=== PATIENT | male | born 1940 | race Caucasian/White ===

== ENCOUNTER 2018-03-08 13:55 | Inpatient (IN) | payer MEDICARE, SELFPAY ==
[2018-03-08] VITALS (21 sets, daily range): BP systolic 112–193; BP diastolic 67–94; PULSE 69–117; RESP 15–26; TEMP 36.4–37.2; O2SAT 80–95; BMI 24.3; BMI 24.4; BMI 25.4
--- NOTE | 2018-03-08 | IMM_PTH ---
PATIENT: BONNY AGUILERA LOC: [facility] U#:[id number] AGE/SX: 77/M ROOM: [facility] RE03/08/[address]: Dr. Mushtaq Garcia MD : 1940 BED: 1 DIS: 03/12/2018 SPEC #: [id number] RECD: 03/10/18 12:42 STATUS: SOULou REQ #: [id number] ALY: 03/08/18 00:[address]: Mushtaq Garcia DEPT: IMMUNOHISTOCHEMISTRY RECD BY: Tiffanie Conroy ENTERED: 03/10/18 12:43 SP TYPE: IMMUNO OTHR DR: MD Dr. Alexis Parra MD Tissues: THORACIC FLUID Procedures: CK5-6 (initial) Tim Ret (add) CK20 (add) CK7 (add) MACRO (add) P53 (add) Vimentin (add) PHYSICIAN & INSTITUTION [place] [id number] SPECIMEN INFORMATION: Tissue Source: Thoracentesis fluid Clinical Info: Acute respiratory failure, COPD Specimen Number: [id number] CPT code: 85918, 68533 x6 METHODOLOGY: Deparaffinized sections of prefer/formalin-fixed tissue or PAP/DQ stained slides are incubated with monoclonal/polyclonal antibodies/oligonucleotide probes. Localization is made via biotin free immunoperoxidase method. Appropriate controls are performed and reacted as expected. Results on target cell population are indicated in the following table: RESULTS: ANTIBODY / CLONE RESULT CK5-6 (D5 & 1684) positive, focal CALRET (polyclonal) positive CK7 (OV-TL12/30) positive CK20 (KS20.8) negative P53 (DO-7) negative Vimentin (V9) positive Macro (HAM-56) positive These tests were developed and their performance characteristics determined by [facility]. They may not have been cleared or approved by the U.S. Food and Drug Administration. The FDA has determined that such clearance or approval is not necessary. INTERPRETATION: Thoracentesis fluid: Reactive mesothelial cells and macrophages. AM:camron 03/11/18
--- NOTE | 2018-03-08 14:09 | EKG12_ITS ---
Test Reason : SOB Blood Pressure : / mmHG Vent. Rate : 079 BPM Atrial Rate : 079 BPM P-R Int : 176 ms QRS Dur : 102 ms QT Int : 400 ms P-R-T Axes : 066 045 056 degrees QTc Int : 458 ms Sinus rhythm with Premature atrial complexes Inferior infarct , age undetermined Abnormal ECG Confirmed by SAUNDRA PAN, PAO ([id number]), online editor JAVAD NAPIER ([id number]) on 03/10/2018 3:15:27 PM Referred By: Anne Vences Confirmed By:PAO ARGUELLO MD
--- NOTE | 2018-03-08 14:13 | RAD_ITS ---
STUDY: X-RAY CHEST REASON FOR EXAM: Male, 77 years old. Shortness of breath and dyspnea. Recent diagnosis of pneumothorax. TECHNIQUE: PA and lateral views of the chest. COMPARISON: None. FINDINGS: There is evidence of a moderate-sized right pleural effusion with underlying infiltration and/or atelectasis. This is superimposed on increased markings in the right upper and right middle lobes suggestive of possible scarring. There is blunting of the posterior left costophrenic angle. Calcified pleural plaques on the right side. Normal size heart. Normal mediastinum and jayla. Normal visualized pulmonary arteries. There is atherosclerotic tortuosity of the aortic arch and descending thoracic aorta. There are diffuse degenerative changes of the visualized thoracic spine. There is degenerative osteoarthritis of the bilateral shoulders. There is no demonstrated abnormality of the visualized soft tissue structures of the upper abdomen. RAD/Chest PA and Lateral IMPRESSION: Right pleural effusion with underlying infiltration and/or atelectasis superimposed on chronic scarring. Calcified right pleural plaques. Electronically Signed: Jens Gomez MD at 15:13 EST Tel [phone], Service support ,
--- NOTE | 2018-03-08 15:09 | ED.VISSUMM ---
- ER Visit Summary Date of Service: 03/08/18 Chief Complaint: Shortness of breath History of Present Illness: The patient is a 77 M with shortness of breath for the past 3 weeks or so he has emphysema, and now he was seen again today and was seen by at the [facility], sent to the emergency department apparently he was hypoxic on his home oxygen. Patient does not endorse any worsening of his symptoms, just similar symptoms for the past 3 weeks. He is denying any steroid use. He uses his home nebulizer every 4 hours which helps. He has no fever or chills. He has a cough but minimal sputum production. No chest pain no leg pain or calf pain or edema. Physical Examination: Patient is in the room on his home oxygen he appears in some distress but is speaking in full sentences. Moist mucous membranes, no obvious facial deformity No C-spine tenderness supple neck. Regular rate and rhythm without any obvious murmurs He has diminished breath sounds bilaterally and slight end expiratory wheezing. Abdomen soft and nontender no guarding or rebound Moves all extremities without any difficulty or pain. Skin does not show any obvious rashes or lesions, no trauma. Alert oriented ?3 with no gross focal deficit Emergency Department Course and Treatment: Patient received steroids and nebulizers. He continued to be hypoxic soon as he talks. He has a pleural effusion which will be drained tomorrow. At this time I believe patient needs admission. Sputum has not changed in color or consistency or frequency he has no fever he has no pneumonia on x-ray I will not start antibiotics in the ED. Disposition: Admit to the hospital stable condition Impression: COPD exacerbation This note was generated with Sodbuster dictation software. It may contain incorrect words, spelling, and punctuation that were not noted in review of the chart prior to signing ED Disposition - Plan for ED Patient: Chief Complaint: Shortness of Breath Referrals: Alexis Vaz MD [Primary Care Provider] -
[2018-03-08] MEDS: Ipratropium/Albuterol Sulfate 3 ML AMPUL.NEB INHALATION ×3 (15:15→23:11)
[2018-03-08] MEDS: Albuterol 2.5 MG/3 ML VIAL.NEB. INHALATION ×2 (15:15)
[2018-03-08] MEDS: MethylPREDNISolone 125 MG/2 ML Vial IV (15:32)
[2018-03-08 15:42] LABS: Absolute Lymphocyte Count 0.84 X10^3/ul (0.83-4.51); Absolute Neutrophil Count 4.4 X10^3/uL (2.0-7.7); Basophil# 0.02 X10^3/uL; Basophil% 0.3 % (0-1); Eosinophil# 0.34 X10^3/uL; Eosinophils% 5.5 % (0-5); Hematocrit 30.8 % (40-54); Hemoglobin 9.1 g/dl (13.0-16.5); Lymphocyte # 0.84 X10^3/ul (4.0); Lymphocyte % 13.6 % (19-41); Mean Corp Hgb Conc 29.5 g/gl (32-36); Mean Corpuscular Hgb 30.2 pg (27.0-32.0); Mean Corpuscular Volume 102.3 fL (80-94); Monocyte# 0.55 X10^3/uL; Monocyte% 8.9 % (0-10); Neutrophil # 4.42 X10^3/uL (2.7-7.7); Neutrophil % 71.5 % (47-70); POSITIVE COUNT NO; POSITIVE DIFFERENTIAL NO; POSITIVE MORPHOLOGY NO; Platelet Count 228 K/mm3 (150-450); RBC Distribution Width CV 13.6 % (11.6-14.6); RBC Distribution Width SD 50.8 fl (35.1-43.9); Red Blood Count 3.01 M/mm3 (4.6-6.2); White Blood Count 6.2 K/mm3 (4.4-11.0)
[2018-03-08 15:50] LABS: Anion Gap 2 (5-15); BUN 23 mg/dL (7-18); BUN/Creat Ratio 17.4 RATIO (10-20); Calcium,Total 8.4 mg/dL (8.5-10.1); Chloride 98 mmol/L (98-107); Creatinine, Serum 1.32 mg/dL (0.70-1.30); EST Glomerular Filtration Rate 56 mL/min (>60); Est Glom Filt Rate - Afr Amer 68 mL/min (>60); Estimated Creatinine Clearance 49.93 ml/min; Glucose 132 mg/dL (74-106); Potassium 4.5 mmol/L (3.5-5.1); Sodium Level 135 mmol/L (136-145)
--- NOTE | 2018-03-08 17:56 | HP.PCM_ITS ---
Problem List (1) COPD (chronic obstructive pulmonary disease) Status: Chronic Qualifiers: COPD type: unspecified COPD Qualified Code(s): J44.9 - Chronic obstructive pulmonary disease, unspecified (2) PAF (paroxysmal atrial fibrillation) Status: Chronic (3) HTN (hypertension) Status: Chronic Qualifiers: Hypertension type: essential hypertension Qualified Code(s): I10 - Essential (primary) hypertension (4) HLD (hyperlipidemia) Status: Chronic Qualifiers: Hyperlipidemia type: unspecified Qualified Code(s): E78.5 - Hyperlipidemia, unspecified (5) Psoriatic arthritis Status: Chronic (6) Chronic respiratory failure with hypoxia Status: Chronic (7) CKD (chronic kidney disease) stage 3, GFR 30-59 ml/min Status: Chronic (8) Anemia Status: Chronic Qualifiers: Anemia type: unspecified type Qualified Code(s): D64.9 - Anemia, unspecified (9) PAD (peripheral artery disease) Status: Chronic (10) Diabetes mellitus, type II Status: Chronic Qualifiers: 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: without nursing home use Diabetes mellitus complication status: with unspecified complications Qualified Code(s): E11.8 - Type 2 diabetes mellitus with unspecified complications (11) Acute respiratory failure with hypoxia Status: Acute (12) COPD exacerbation Status: Acute History of Present Illness Date of Admission: 03/08/18 Chief Complaint: Dyspnea, hypoxic The patient is a 77 y/o M w/ PMHx: CKD stage III, PAF not anticoagulated secondary to GI bleed hx, chronic macrocytic anemia, HTN, HLD, GERD, Diabetes mellitus type II, BPH, Psoriatic Arthritis, Chronic COPD w/ Chronic Hypoxic Respiratory failure (4L NC) who presents to the [facility] ED per recommendation CC PCP secondary to ongoing progressively worsening dyspnea, wheezing, minimally productive cough and nasal congestion although chronic component as well without any fever or chills w/ serial evaluations recently for ongoing symptoms. Upon most recent evaluation on day of ED presentation at [facility] urgent care patient was noted to be hypoxic into the 60s. In the ED work-up includes afebrile, heart rate 80, BP 112/67, respiratory rate 24, 95% on 4 L nasal cannula but with any conversational attempts patient does desaturate upon evaluation into the 80s, CBC with WBC 6.2, heme globin 9.1, platelet 228 without market left shift, BMP with sodium 135, carbon dioxide 35, BUN/creatinine 23/1.32, glucose 132, troponin 0 0.026, EKG with no acute evidence of ischemia, chest x-ray with right pleural effusion moderate size with underlying atelectasis superimposed on chronic scarring, calcified right pleural plaques. In the ED patient administered albuterol, DuoNeb and Solu-Medrol. Discussed with the ED physician and given ongoing severe appearance with increased work of breathing, accessory muscle usage, conversational dyspnea with intermittent desaturations despite increased oxygenation into the mid 80s ABG to be obtained. Home medications: Lisinopril 40 mg p.o. daily Flonase 50 MCG/actuation nasal spray 2 sprays each nostril daily Felodipine ER 10 mg p.o. daily Sulfasalazine EC 500 mg p.o. daily Flomax 0.4 mg p.o. daily Folic acid 1 mg p.o. daily Albuterol Ventolin inhaler 90 MCG/actuation as needed DuoNeb 0.5 mg-3 mg/3 Mill nebulizer every 6 hours Colace 100 mg p.o. daily Mucinex 600 mg p.o. twice daily Vitamin B1 100 mg p.o. daily Atorvastatin 40 mg p.o. nightly Latanoprost 0.005% ophthalmic solution Aspirin 81 mg p.o. daily Past Medical History Past Medical History (Chronic Problems): Chronic Problems COPD (chronic obstructive pulmonary disease) (Chronic) PAF (paroxysmal atrial fibrillation) (Chronic) HTN (hypertension) (Chronic) HLD (hyperlipidemia) (Chronic) Psoriatic arthritis (Chronic) Chronic respiratory failure with hypoxia (Chronic) CKD (chronic kidney disease) stage 3, GFR 30-59 ml/min (Chronic) Anemia (Chronic) PAD (peripheral artery disease) (Chronic) Diabetes mellitus, type II (Chronic) Allergies No Known Allergies Allergy (Verified 03/08/18 14:02) Surgical History: - - Right surgery with corneal transplant, umbilical hernia repair. Psychiatric History: No pertinent psych hx Lives: Alone Smoking Status: Former smoker - Quit in July 2017 with 1 pack/day history prior to this times 50 years. Tobacco Use: Non-smoker Alcohol: Occasional Drugs: None - *Family History Maternal History Items: Cancer Paternal History Items: Cancer Review of Systems Constitutional: Reports: Malaise, Weakness, Fatigue. Denies: Chills, Fever, Weight Change HEENT: Denies: Head Aches, Sinus Congestion, Sinus Drainage Cardiovascular: Denies: Chest Pain, Palpitations Respiratory: Reports: Cough, Shortness of Breath, Shortness of breath at rest, Shortness of breath upon exertion, Wheezing. Denies: Sputum production Gastrointestinal: Denies: Abdominal Pain, Nausea, Vomiting Genitourinary: Denies: Dysuria Musculoskeletal: Reports: Back Pain, Joint Pain. Denies: Joint Tenderness Skin: Reports: Skin Changes. Denies: Rash, Wounds Neurological: Denies: Numbness, Tingling, Focal weakness Psychiatric: Denies: Anxiety, Depression, Homicidal Ideations, Suicidal Ideations Hematologic/ Lymphatic: Reports: Anemia. Denies: Easy Bruising, Easy Bleeding VTE Information - Inpt Only VTE Present on Admission: No VTE Mechan Device Prophylaxis: SCD's VTE Pharm Prophylaxis ordered?: Yes Patient Problems: Active and Suspected Problems Acute respiratory failure with hypoxia (Acute) COPD exacerbation (Acute) Subjective: Seated upright in the ED bed, fatigued appearance, increased work of breathing, accessory muscle usage, increased respiratory rate. Objective: Physical Examination: General: awake, alert, oriented x 3 and cooperative, seated upright in the ED bed, increased work of breathing, accessory muscle usage, increased respiratory rate. Skin: normal color, turgor, no icterus, cyanosis. HEENT: AT/NC, EOMI, PERRLA, mildly dry MM, no carotid bruits or JVD noted. Lungs: Diminished breath sounds diffusely, greater bilateral bases, right greater than left, no market rales noted, increased work of breathing, accessory muscle usage, conversational dyspnea, evident respiratory distress. Heart: Mildly tachycardic with regular rhythm; no gallop, rub audible. Abdomen: soft, NTTP, ND, normal BS, no HSM. Extremities: no cyanosis, clubbing, mild bilateral lower extremity ankle edema. Neurological: patient awake, alert, oriented x 3; cognitive function intact; pupils equally reactive to light and accomodation; cranial nerves II-XII grossly normal, moving all 4 extremities, no focal deficits, strength severely globally decreased secondary to acute presentation. Psychiatric: affect appears fatigued, no acute evidence of depressive or anxiety feelings. - Physical Exam Vital Signs Temp Pulse Resp BP Pulse Ox 97.5 F L 81 15 182/91 H 90 03/08/18 13:59 03/08/18 17:07 03/08/18 17:07 03/08/18 17:07 03/08/18 17:07 Oxygen Flow Rate (L/min) 6 Oxygen Delivery Method Nasal Cannula Weight: 170 lb Body Mass Index (BMI) 24.3 Laboratory Tests Past 24 Hrs 03/08/18 03/08/18 15:20 15:20 WBC 6.2 RBC 3.01 L Hgb 9.1 L Hct 30.8 L MCV 102.3 H MCH 30.2 MCHC 29.5 L RDW 13.6 RDW Differential 50.8 H Plt Count 228 MPV 9.0 Immature Gran % (Auto) 0.200 Neut % (Auto) 71.5 H Lymph % (Auto) 13.6 L Nicholas % (Auto) 8.9 Eos % (Auto) 5.5 H Baso % (Auto) 0.3 Absolute Neuts (auto) 4.4 Absolute Lymphs (auto) 0.84 Total Counted Not Reportable Sodium 135 L Potassium 4.5 Chloride 98 Carbon Dioxide 35.0 H Anion Gap 2 L BUN 23 H Creatinine 1.32 H Estim Creat Clear Calc 49.93 Est GFR (MDRD) Af Amer 68 Est GFR (MDRD) Non-Af 56 L BUN/Creatinine Ratio 17.4 Glucose 132 H Calcium 8.4 L Troponin I 0.026 Assessment/Plan All Active Problems Acute respiratory failure with hypoxia (Acute) COPD exacerbation (Acute) The patient is a 77 y/o M w/ PMHx: CKD stage III, PAF not anticoagulated secondary to GI bleed hx, chronic macrocytic anemia, HTN, HLD, GERD, Diabetes mellitus type II, BPH, Psoriatic Arthritis, Chronic COPD w/ Chronic Hypoxic Respiratory failure (4L NC) who presents to the [facility] ED per recommendation CC PCP secondary to ongoing progressively worsening dyspnea, wheezing, minimally productive cough and nasal congestion although chronic component as well without any fever or chills w/ serial evaluations recently for ongoing symptoms. (1) Acute on chronic COPD exacerbation w/ Acute on Chronic Hypoxic Respiratory Failure and Suspected Hypercapnia and recurrent right-sided pleural effusion: CXR w/ chronic changes, CBC on admission w/ no market W BC elevation or left shift. In the ED patient concerning appearance with evident respiratory distress ongoing with pending ABG. Will admit to PCU given prior BIPAP usage prior, pending ABG, transition to oxygen with wean as tolerated to home oxygen supplementation, continue ATC duonebs, PRN albuterol, IV methylprednisolone, HOB, IS parameters, pending sputum cultures and respiratory viral panel. Defer abx as no marked WBC elevation or shift, afebrile. Patient with noted history of prior right-sided pleural effusion with thoracentesis needed prior. Will maintain n.p.o. after midnight with hold on heparin in a.m. for radiology requested thoracentesis. (2) PAF: Patient currently sinus rhythm, not on rate or rhythm agent, not anticoagulated secondary to history of GI bleed, continue to monitor on telemetry. (3) Hypertension: Continue home regimen including lisinopril, felodipine, PRN hydralazine. (4) Hyperlipidemia: Continue home statin regimen. (5) Diabetes mellitus type II: Not on regimen per list, ADA diet, accu checks w/ ISS, HgbA1c pending. (6) Chronic Kidney Disease Stage III: Admission BUN/Cr 23/1.32, suspect baseline, do not have renal functions given CC system, repeat BMP in AM. (7) Psoriatic arthritis: Continue home sulfasalazine regimen. (8) Anemia, unclear type, macrocytic: Possibly folic acid deficiency, continue home folic acid supplementation. Admission hemoglobin 9.1. (9) BPH: Continue home Flomax regimen. (10) GERD: PPI. (11) DVT Prophylaxis: SCDs, heparin. (12) CODE status: Discussed CODE status at length including difference between FULL code, DNR-CCA and DNR-CC status. Following discussions about the differences in these status, requested DNR-CCA, no intubation status. Family present. Discussed importance of initiating healthcare power of workers compensation defense attorney with his children and living will as he is very specific requests as noted. Patient willing to have BiPAP therapy. Advanced Care Planning Face to Face Time: 17 minutes. Code Visit Inpatient E&M: 15897 Init Hosp L3 Procedures: 27742 Advncd Care Plan 30 Min
[2018-03-08 18:01] LABS: Base Excess 6 mmol/L (-2 to +2); Bicarbonate 31.8 mmol/L (22-26); Blood Gas Specimen Type ART; O2 Delivery Device Nasal Can; PO2 58 mmHG (75-100); SITE L Brachial; SO2 87 % (95-99); Time Given 1755; Total Carbon Dioxide 34 mmol/L; pCO2 59.5 mmHg (35-45); pH 7.34 (7.35-7.45)
--- NOTE | 2018-03-08 20:49 | CPS ---
Patient stated that he does not want the Bipap on at this time. Nursing notified.
[2018-03-08 21:00] LABS: Magnesium 1.9 mg/dL (1.6-2.6)
[2018-03-08] MEDS: Heparin Injection (Vial) 5,000 UNIT/ML VIAL 5000 UNIT SC (22:00)
[2018-03-08] MEDS: Atorvastatin Calcium 40 MG Tablet PO (22:00)
[2018-03-08] MEDS: guaiFENesin 1,200 MG Tablet 1200 MG PO (22:00)
[2018-03-08] MEDS: Insulin Lispro 100 UNIT/ML INSULN.PEN SC (22:00)
[2018-03-08] MEDS: 0.9% NaCl Peripheral Flush Adult/Peds IV (22:01)
[2018-03-08] MEDS: LORazepam 2 MG/ML Syringe 0.5 MG IV (22:01)
[2018-03-08 22:15] LABS: Bedside Glucose 263 mg/dL (70-110)
[2018-03-09] VITALS (28 sets, daily range): BP systolic 139–164; BP diastolic 59–84; PULSE 77–111; RESP 16–22; TEMP 36.7–37.2; O2SAT 93–98; BMI 25.4
--- NOTE | 2018-03-09 | FLU_PTH ---
PATIENT: BONNY AGUILERA LOC: [facility] U#:[id number] AGE/SX: 77/M ROOM: [facility] RE03/08/[address]: Dr. Mushtaq Garcia MD : 1940 BED: 1 DIS: 03/12/2018 SPEC #: [id number] RECD: 03/09/18 13:33 STATUS: RICKIE REScarlett #: [id number] ALY: 03/09/18 00:[address]: Mushtaq Garcia DEPT: CYTOLOGY RECD BY: Praveen Gordillo ENTERED: 03/09/18 14:16 SP TYPE: Fluid OTHR DR: MD Dr. Alexis Parra MD Tissues: THORACIC FLUID Procedures: Pap Stain (control) Special Stain Group II Surgery Specimen Level IV Cell Block Cytospin Fluid HEADER OPERATION: Ultrasound-guided right thoracentesis PRE-OP DIAGNOSIS: Acute respiratory failure, COPD TISSUE SUBMITTED: Thoracentesis fluid for cytology DIAGNOSIS CYTOLOGY Thoracentesis fluid for cytology (cytospin and cell block): Negative for malignant cells. See cytology study and comment. AM:camron 03/10/18 COMMENT Immunohistochemistry ([id number]) supports the above diagnosis. CYTOLOGY STUDY Slides are reviewed. The specimen contains reactive mesothelial cells and macrophages and smaller amounts of acute and chronic inflammatory cells. CYTOLOGY GROSS Received is 90 ml of hazy light calista fluid labeled with the patient's name and and designated per the requisition as thoracentesis. Submitted for cytology preparation including cell block. / 03/09/18 TC:5 CPT: 54017, 53298
[2018-03-09] MEDS: Ipratropium/Albuterol Sulfate 3 ML AMPUL.NEB INHALATION ×6 (03:21→23:30)
[2018-03-09] MEDS: 0.9% NaCl Peripheral Flush Adult/Peds IV ×6 (04:40→22:23)
[2018-03-09] MEDS: hydrALAZINE 20 MG/ML Vial 10 MG IV ×2 (04:41→17:13)
[2018-03-09 06:44] LABS: Absolute Lymphocyte Count 0.45 X10^3/ul (0.83-4.51); Absolute Neutrophil Count 3.5 X10^3/uL (2.0-7.7); Basophil# 0.01 X10^3/uL; Basophil% 0.2 % (0-1); Hematocrit 29.9 % (40-54); Hemoglobin 8.9 g/dl (13.0-16.5); Lymphocyte # 0.45 X10^3/ul (4.0); Lymphocyte % 10.4 % (19-41); Mean Corp Hgb Conc 29.8 g/gl (32-36); Mean Corpuscular Hgb 30.9 pg (27.0-32.0); Mean Corpuscular Volume 103.8 fL (80-94); Mean Platelet Vol. 9.3 fl (6.2-12.0); Monocyte# 0.37 X10^3/uL; Monocyte% 8.6 % (0-10); Neutrophil # 3.48 X10^3/uL (2.7-7.7); Neutrophil % 80.6 % (47-70); Platelet Count 252 K/mm3 (150-450); RBC Distribution Width CV 12.9 % (11.6-14.6); RBC Distribution Width SD 47.3 fl (35.1-43.9); Red Blood Count 2.88 M/mm3 (4.6-6.2); White Blood Count 4.3 K/mm3 (4.4-11.0)
[2018-03-09 06:45] LABS: Differential Indicated SCAN CRITERIA MET; POSITIVE COUNT NO; POSITIVE DIFFERENTIAL YES; POSITIVE MORPHOLOGY NO
[2018-03-09 06:59] LABS: Anion Gap 6 (5-15); BUN 23 mg/dL (7-18); BUN/Creat Ratio 17.3 RATIO (10-20); Calcium,Total 8.2 mg/dL (8.5-10.1); Chloride 99 mmol/L (98-107); Creatinine, Serum 1.33 mg/dL (0.70-1.30); EST Glomerular Filtration Rate 56 mL/min (>60); Est Glom Filt Rate - Afr Amer 67 mL/min (>60); Estimated Creatinine Clearance 49.55 ml/min; Glucose 123 mg/dL (74-106); Potassium 4.4 mmol/L (3.5-5.1); Sodium Level 140 mmol/L (136-145)
[2018-03-09 07:05] LABS: Bedside Glucose 125 mg/dL (70-110)
[2018-03-09 07:19] LABS: Differential Comment SCANNED
--- NOTE | 2018-03-09 08:00 | US_ITS ---
PROCEDURE: ULTRASOUND GUIDED THORACENTESIS. DATE: March 09, 2018.. INDICATION: Male, 77 years old. Right pleural effusion. PHYSICIAN: Jens Gomez M.D. PROCEDURE: The risks, benefits, and alternatives to the procedure were explained to the patient. The specific risks of bleeding, infection, and pneumothorax requiring chest tube insertion were discussed and accepted. Written informed consent was obtained. Ultrasonographic evaluation of the right lower pleural space was carried out. An adequate pocket was identified. The patient was placed in the sitting, upright position. The overlying skin was prepped and draped in sterile fashion. 1% lidocaine was administered subcutaneously for local anesthesia. Under ultrasound guidance, a 5 Slovenian thoracentesis needle/catheter system was advanced into the right posterior lower pleural fluid collection. Approximately 720 mL of calista-colored fluid was drained. The catheter was removed, and a sterile dressing was applied. A specimen was collected and sent to the laboratory for analysis, as requested by the referring clinician. The patient tolerated the procedure well. A chest x-ray was ordered. US/Thoracentesis W US IMPRESSION: Ultrasound-guided right thoracentesis. Electronically Signed: Jens Gomez MD at 13:52 EST Tel [phone], Service support ,
[2018-03-09] MEDS: Tamsulosin HCl 0.4 MG Capsule PO (08:07)
[2018-03-09] MEDS: guaiFENesin 1,200 MG Tablet 1200 MG PO ×2 (09:03→22:23)
[2018-03-09] MEDS: Latanoprost 0.005% 1 Bottle 2 DRP EACH EYE (09:03)
[2018-03-09] MEDS: amLODIPine 10 MG Tablet PO (09:03)
[2018-03-09] MEDS: Fluticasone 0.05% 1 SPRAY NASAL.SRY 2 SPRAY NASAL (09:03)
[2018-03-09] MEDS: sulfaSALAzine 500 MG Tablet 1000 MG PO ×2 (09:03→17:13)
[2018-03-09] MEDS: Lisinopril 40 MG Tablet PO (09:03)
--- NOTE | 2018-03-09 10:51 | ECHOCS_ITS ---
Reason For Study: PHTNF Procedure This was a 2D Doppler, Color Flow transthoracic echocardiogram. The study was technically limited. The study was technically difficult. Due to COPD and patient extremely restless. Contrast injection was performed. Exam performed portable in patient room. Left Ventricle Moderately dilated left ventricle. The estimated ejection fraction is 35-40 %. Stage 1 diastolic dysfunction. Septal motion consistent with IVCD. There is moderate to severe global hypokinesis of the left ventricle. Right Ventricle Moderately dilated right ventricle. Mild global right ventricular systolic dysfunction. Atria The left atrium is mildly enlarged. The right atrium is mildly enlarged. Normal atrial septum. Mitral Valve The mitral valve is structurally normal. No prolapse or stenosis seen. Tricuspid Valve Normal tricuspid valve. Trivial tricuspid valve insufficiency. Right ventricular systolic pressure estimated to be 48 mmHg. Moderate pulmonary hypertension. Aortic Valve Normal aortic valve. Trisinus/trileaflet aortic valve. Pulmonic Valve The pulmonic valve is not well visualized. Great Vessels Normal aortic root. Normal arch. Normal inferior vena cava. Inferior vena cava collapse with sniff. Pericardium/Pleural No pericardial effusion. Medication Diluted definity 3.0ml given slow IV push to enhance endocardial definition. MMode/2D Measurements & Calculations LVIDd: 5.1 cm IVSd: 1.3 cm LVOT diam: 2.1 cm LVIDs: 3.6 cm LVPWd: 1.3 cm LVOT area: 3.3 cm2 RVDd: 4.9 cm FS: 29.5 % LAV(MOD-bp): 67.4 ml LA A4 area: 21.6 cm2 RA A4 area: 20.7 cm2 LAV(MOD-bp) Indexed: 34.1 ml/m2 LAV(MOD-sp2): 70.6 ml LAV(MOD-sp4): 62.3 ml Time Measurements MV dec time: 0.17 sec Doppler Measurements & Calculations MV E max shahbaz: 127.9 cm/sec Lat Peak E' Shahbaz: 9.3 cm/sec Med Peak E' Shahbaz: 8.0 cm/sec MV A max shahbaz: 165.9 cm/sec E/E' lat: 13.8 E/E' med: 16.1 MV E/A: 0.77 MV V2 max: 191.0 cm/sec MV P1/2t max shahbaz: 129.4 cm/sec Ao V2 max: 200.1 cm/sec MV max P.6 mmHg Ao max P.0 mmHg MV V2 mean: 111.2 cm/sec Ao V2 mean: 141.2 cm/sec MV mean P.5 mmHg Ao mean P.7 mmHg MV V2 VTI: 41.6 cm Ao V2 VTI: 39.6 cm MVA(VTI): 1.9 cm2 RICHIE(I,D): 2.0 cm2 RICHIE(V,D): 2.1 cm2 LV V1 max: 127.0 cm/sec SV(LVOT): 78.8 ml PA V2 max: 160.4 cm/sec LV V1 max P.5 mmHg LV V1 mean P.5 mmHg LV V1 mean: 89.4 cm/sec LV V1 VTI: 23.7 cm TR max shahbaz: 298.6 cm/sec TR max P.7 mmHg Interpretation Summary Moderately dilated left ventricle. The estimated ejection fraction is 35-40 %. Stage 1 diastolic dysfunction. There is moderate to severe global hypokinesis of the left ventricle. Moderately dilated right ventricle. Trivial tricuspid valve insufficiency. Right ventricular systolic pressure estimated to be 48 mmHg. Moderate pulmonary hypertension. The study was technically difficult. Contrast injection was performed. There is no comparison study available. Ordering Physician: Jeet Morales Referring Physician: Alexis Vaz Performed By: Marisela Morrison, EMERITA, RVT
[2018-03-09 10:55] LABS: Prothrombin Time (Protime)PT. 13.4 SECONDS (11.7-14.9)
--- NOTE | 2018-03-09 10:55 | CASEMGMT ---
FARHAN MURILLO assessment: Face to Face with patient for initial transition planning/care coordination assessment. FARHAN MURILLO introduced self and role at [facility], pt voices understanding and consents to assessment at this time. Pt is sitting up in bed in some distress at this time. Pt is A/O x4 at this time and answers all questions at this time. Care providers, pharmacy, and demographics verified at this time. PCP: Milind, pt states also goes to the [facility] in [place] once a year. Specialists: Deion Preferred Pharmacy: [facility]: [facility] Will/HPOA: Pt states no current LW/HPOA at this time and declines need for info at this time. LNOK: Tiffanie Allison, daughter Living Arrangements: Pt states lives alone on main level of 2 story home and states no concerns at home at this time. Pt states is normally able to care for self and no concerns with ADL's. Transportation: Pt states drives self and states no transportation concerns at this time. DME/HHC: Pt states has the following DME: grab bars, shower chair, walker, cane, nebulizer, and home oxygen 3liters at rest and [facility]. Pt states no hx of HHC but states has been [facility] in the past. Pt states no concerns with going home at time of discharge and states that he is ready to go today. Pt states quit smoking in July 2017 after 50yrs. of smoking and states drinks ETOH occasionally. Pt states no further concerns/needs at this time. Pt declines to be transferred to [place] at this time and signed declination form at this time. Declination form, along with H[facility]. CM to follow for any further discharge planning/needs. Advised pt to ask for CM if any further questions/concerns/needs arise, voices understanding. Plan: [place] FARHAN MURILLO
[2018-03-09 10:56] LABS: Partial Thromboplast Time 29.4 Seconds (24.1-36.2)
[2018-03-09 11:28] LABS: ALB/GLOB Ratio 0.8 RATIO (0.9-2.4); Globulin 3.7 g/dL (2.2-4.2); LDH 222 U/L (87-241); Protein, Total 6.6 g/dL (6.4-8.2)
[2018-03-09 11:29] LABS: BNP,B-Type NATRIURETIC PEPTIDE 724.2 pg/mL (0-100)
[2018-03-09 11:36] LABS: Bedside Glucose 139 mg/dL (70-110)
[2018-03-09] MEDS: LORazepam 2 MG/ML Syringe 0.5 MG IV (12:09)
--- NOTE | 2018-03-09 13:20 | RAD_ITS ---
STUDY: X-RAY CHEST REASON FOR EXAM: Male, 77 years old. Status post right thoracentesis. TECHNIQUE: AP inspiration and expiration views. COMPARISON: Comparison is made with prior study dated March 08, 2018. FINDINGS: The patient is status post right thoracentesis. There is no active pneumothorax. Residual pleural parenchymal changes of the right lung base although this has improved as compared to prior study. Stable hyperexpansion of the left lung with volume loss in the right hemithorax. RAD/Chest Insp/Exp 2 View IMPRESSION: No evidence of pneumothorax following a right thoracentesis. Residual pleural parenchymal changes at the right lung base. Electronically Signed: Jens Gomez MD at 13:43 EST Tel [phone], Service support ,
--- NOTE | 2018-03-09 13:26 | PCM.PROGNOTE ---
<Jeet Morales - Last Filed: 03/09/18 13:26> Patient Problems: Active and Suspected Problems Acute respiratory failure with hypoxia (Acute) COPD exacerbation (Acute) Subjective: SOB continues. He desaturated to the low 80s while talking to me on 6lpm. He has no CP. He has cough with white sputum production. No hemoptysis. He smoked 1-2 ppd for 50+ years, quit this past year in july. He follows Dr. Van. He uses home o2 4 lpm, no cpap/bipap at home. No hx blood clots. - Physical Exam General: Alert, Oriented x3, Cooperative HEENT: Atraumatic, PERRLA, EOMI, Normocephalic Neck: Supple, No JVD, Negative Carotid Bruits Lungs: Diminished, Rales Cardiovascular: Regular rate, No murmurs Abdomen: Bowel Sounds Present, Soft, Non Tender Extremities: No edema, Capillary Refill Less than 3 Seconds Skin: No rashes, No breakdown Musculoskeletal: No Tenderness to Palpation of Joints or Extremities Neurological: Cranial nerves II-XII grossly intact Psych/Mental Status: Normal Affect, Appropriate Vital Signs Temp Pulse Resp BP Pulse Ox 98.1 F 80 16 160/78 H 95 03/09/18 10:18 03/09/18 11:36 03/09/18 11:36 03/09/18 10:18 03/09/18 10:18 Oxygen Flow Rate (L/min) 6 Oxygen Delivery Method Nasal Cannula Weight: 177 lb 0.499 oz Body Mass Index (BMI) 25.4 Intake and Output for Last 24 Hours 03/07/18 03/08/18 03/09/18 23:59 23:59 23:59 Intake Total 240 / 240 60 / 60 Output Total 525 / 525 550 / 550 Balance -285 / -285 -490 / -490 Microbiology Past 72 Hours 03/08/18 20:58 Respiratory Panel (PCR) - Final Mucosa - Nose Laboratory Tests Past 24 Hrs 03/08/18 03/08/18 03/08/18 15:20 15:20 15:20 WBC 6.2 RBC 3.01 L Hgb 9.1 L Hct 30.8 L MCV 102.3 H MCH 30.2 MCHC 29.5 L RDW 13.6 RDW Differential 50.8 H Plt Count 228 MPV 9.0 Immature Gran % (Auto) 0.200 Neut % (Auto) 71.5 H Lymph % (Auto) 13.6 L [place] % (Auto) 8.9 Eos % (Auto) 5.5 H Baso % (Auto) 0.3 Absolute Neuts (auto) 4.4 Absolute Lymphs (auto) 0.84 Total Counted Not Reportable Differential Comment PT INR APTT Specimen Type Sample Site pH Bicarbonate Actual POC Total CO2 Base Excess O2 Saturation ABG pCO2 ABG pO2 O2 Delivery Device Liter Flow Blood Gas Notified Whom Blood Gas Notified Time Sodium 135 L Potassium 4.5 Chloride 98 Carbon Dioxide 35.0 H Anion Gap 2 L BUN 23 H Creatinine 1.32 H Estim Creat Clear Calc 49.93 Est GFR (MDRD) Af Amer 68 Est GFR (MDRD) Non-Af 56 L BUN/Creatinine Ratio 17.4 Glucose 132 H Hemoglobin A1c Calcium 8.4 L Magnesium 1.9 Lactate Dehydrogenase Troponin I 0.026 B-Natriuretic Peptide Total Protein Globulin Albumin/Globulin Ratio 03/08/18 03/08/18 03/09/18 15:20 17:57 06:18 WBC 4.3 L RBC 2.88 L Hgb 8.9 L Hct 29.9 L MCV 103.8 H MCH 30.9 MCHC 29.8 L RDW 12.9 RDW Differential 47.3 H Plt Count 252 MPV 9.3 Immature Gran % (Auto) 0.200 Neut % (Auto) 80.6 H Lymph % (Auto) 10.4 L [place] % (Auto) 8.6 Eos % (Auto) 0.0 Baso % (Auto) 0.2 Absolute Neuts (auto) 3.5 Absolute Lymphs (auto) 0.45 L Total Counted Not Reportable Differential Comment SCANNED PT INR APTT Specimen Type ART Sample Site L Brachial pH 7.34 L Bicarbonate Actual 31.8 H POC Total CO2 34 Base Excess 6 H O2 Saturation 87 L ABG pCO2 59.5 H ABG pO2 58 L O2 Delivery Device Nasal Can Liter Flow 5.0 Blood Gas Notified Whom [facility] Blood Gas Notified Time 1755 Sodium Potassium Chloride Carbon Dioxide Anion Gap BUN Creatinine Estim Creat Clear Calc Est GFR (MDRD) Af Amer Est GFR (MDRD) Non-Af BUN/Creatinine Ratio Glucose Hemoglobin A1c 5.0 Calcium Magnesium Lactate Dehydrogenase Troponin I B-Natriuretic Peptide Total Protein Globulin Albumin/Globulin Ratio 03/09/18 03/09/18 03/09/18 06:18 10:34 10:34 WBC RBC Hgb Hct MCV MCH MCHC RDW RDW Differential Plt Count MPV Immature Gran % (Auto) Neut % (Auto) Lymph % (Auto) [place] % (Auto) Eos % (Auto) Baso % (Auto) Absolute Neuts (auto) Absolute Lymphs (auto) Total Counted Differential Comment PT INR APTT Specimen Type Sample Site pH Bicarbonate Actual POC Total CO2 Base Excess O2 Saturation ABG pCO2 ABG pO2 O2 Delivery Device Liter Flow Blood Gas Notified Whom Blood Gas Notified Time Sodium 140 Potassium 4.4 Chloride 99 Carbon Dioxide 35.0 H Anion Gap 6 BUN 23 H Creatinine 1.33 H Estim Creat Clear Calc 49.55 Est GFR (MDRD) Af Amer 67 Est GFR (MDRD) Non-Af 56 L BUN/Creatinine Ratio 17.3 Glucose 123 H Hemoglobin A1c Calcium 8.2 L Magnesium Lactate Dehydrogenase 222 Troponin I B-Natriuretic Peptide 724.2 H Total Protein 6.6 Globulin 3.7 Albumin/Globulin Ratio 0.8 L 03/09/18 10:39 WBC RBC Hgb Hct MCV MCH MCHC RDW RDW Differential Plt Count MPV Immature Gran % (Auto) Neut % (Auto) Lymph % (Auto) [place] % (Auto) Eos % (Auto) Baso % (Auto) Absolute Neuts (auto) Absolute Lymphs (auto) Total Counted Differential Comment PT 13.4 INR 1.0 APTT 29.4 Specimen Type Sample Site pH Bicarbonate Actual POC Total CO2 Base Excess O2 Saturation ABG pCO2 ABG pO2 O2 Delivery Device Liter Flow Blood Gas Notified Whom Blood Gas Notified Time Sodium Potassium Chloride Carbon Dioxide Anion Gap BUN Creatinine Estim Creat Clear Calc Est GFR (MDRD) Af Amer Est GFR (MDRD) Non-Af BUN/Creatinine Ratio Glucose Hemoglobin A1c Calcium Magnesium Lactate Dehydrogenase Troponin I B-Natriuretic Peptide Total Protein Globulin Albumin/Globulin Ratio POC Glucose 03/09/18 03/09/18 03/08/18 11:22 06:48 21:58 POC Glucose 139 H 125 H 263 H Medical Necessity - Tobacco Use Smoking Status: Former smoker Tobacco Use: Non-smoker Assessment/Plan All Active Problems Acute respiratory failure with hypoxia (Acute) COPD exacerbation (Acute) 1. Acute on chronic mixed respiratory failure 2/2 acute copd exacerbation and acute CHF exacerbation (type unclear) - moderate pleural effusion. To thora today. Fluid panel ordered. add lasix. Continue steroids + aerosols. BNP significantly elevated. Echo pending. Afebrile no leukocytosis. Viral panel negative. Pt refused BiPAP overnight. Severe smoking hx 1-2 ppd x 50 years quit [address] Van. 2. PAF - SR. hx GI bleed. no OAC. 3. HTN - somewat elevated. trend. 4. HLD - statin 5. DMt2 - diet controlled. A1c 5.0. 6. CKDIII - stable. monitor with lasix. 7. Psoriatic arthritis -sulfasalazine 8. macrocytic anemia - continue folate. 9. BPH - check post void, possibly contributing to #1. continue flomax DVT ppx: heparin DC planning: ptot This patient was seen by Jeet Morales PA-C under the supervision of Doctor Radha. <Mushtaq Garcia - Last Filed: 03/09/18 16:30> - Physical Exam Vital Signs Temp Pulse Resp BP Pulse Ox 98.1 F 93 16 139/69 H 94 03/09/18 10:18 03/09/18 15:03 03/09/18 14:55 03/09/18 13:20 03/09/18 13:53 Oxygen Flow Rate (L/min) 6 Oxygen Delivery Method Nasal Cannula Weight: 80.3 kg Body Mass Index (BMI) 25.4 Intake and Output for Last 24 Hours 03/07/18 03/08/18 03/09/18 23:59 23:59 23:59 Intake Total 240 / 240 60 / 60 Output Total 525 / 525 1270 / 1270 Balance -285 / -285 -1210 / -1210 Microbiology Past 72 Hours 03/09/18 08:00 Gram Stain - Final Sputum, Expectorated/Coughed 03/09/18 13:00 Gram Stain - Final Fluid - Thoracentesis Fluid 03/08/18 20:58 Respiratory Panel (PCR) - Final Mucosa - Nose Laboratory Tests Past 24 Hrs 03/08/18 03/08/18 03/08/18 15:20 15:20 17:57 WBC RBC Hgb Hct MCV MCH MCHC RDW RDW Differential Plt Count MPV Immature Gran % (Auto) Neut % (Auto) Lymph % (Auto) [place] % (Auto) Eos % (Auto) Baso % (Auto) Absolute Neuts (auto) Absolute Lymphs (auto) Total Counted Differential Comment PT INR APTT Specimen Type ART Sample Site L Brachial pH 7.34 L Bicarbonate Actual 31.8 H POC Total CO2 34 Base Excess 6 H O2 Saturation 87 L ABG pCO2 59.5 H ABG pO2 58 L O2 Delivery Device Nasal Can Liter Flow 5.0 Blood Gas Notified Whom [facility] Blood Gas Notified Time 1755 Sodium Potassium Chloride Carbon Dioxide Anion Gap BUN Creatinine Estim Creat Clear Calc Est GFR (MDRD) Af Amer Est GFR (MDRD) Non-Af BUN/Creatinine Ratio Glucose Hemoglobin A1c 5.0 Calcium Magnesium 1.9 Lactate Dehydrogenase B-Natriuretic Peptide Total Protein Globulin Albumin/Globulin Ratio Fluid Source Fluid Color Fluid Appearance Fluid pH Fluid WBC Fluid RBC Fluid Tot Cell Count Fld Polynuclear WBCs # Fld Polynuclear WBCs % Fluid Mononuclear WBCs Fld Mononuclear WBCs % Fluid Neutrophils Fluid Lymphocytes Fl Pathologist Comment Fluid Glucose Fluid Total Protein Fluid LDH Fluid Comment 2 03/09/18 03/09/18 03/09/18 06:18 06:18 10:34 WBC 4.3 L RBC 2.88 L Hgb 8.9 L Hct 29.9 L MCV 103.8 H MCH 30.9 MCHC 29.8 L RDW 12.9 RDW Differential 47.3 H Plt Count 252 MPV 9.3 Immature Gran % (Auto) 0.200 Neut % (Auto) 80.6 H Lymph % (Auto) 10.4 L [place] % (Auto) 8.6 Eos % (Auto) 0.0 Baso % (Auto) 0.2 Absolute Neuts (auto) 3.5 Absolute Lymphs (auto) 0.45 L Total Counted Not Reportable Differential Comment SCANNED PT INR APTT Specimen Type Sample Site pH Bicarbonate Actual POC Total CO2 Base Excess O2 Saturation ABG pCO2 ABG pO2 O2 Delivery Device Liter Flow Blood Gas Notified Whom Blood Gas Notified Time Sodium 140 Potassium 4.4 Chloride 99 Carbon Dioxide 35.0 H Anion Gap 6 BUN 23 H Creatinine 1.33 H Estim Creat Clear Calc 49.55 Est GFR (MDRD) Af Amer 67 Est GFR (MDRD) Non-Af 56 L BUN/Creatinine Ratio 17.3 Glucose 123 H Hemoglobin A1c Calcium 8.2 L Magnesium Lactate Dehydrogenase B-Natriuretic Peptide 724.2 H Total Protein Globulin Albumin/Globulin Ratio Fluid Source Fluid Color Fluid Appearance Fluid pH Fluid WBC Fluid RBC Fluid Tot Cell Count Fld Polynuclear WBCs # Fld Polynuclear WBCs % Fluid Mononuclear WBCs Fld Mononuclear WBCs % Fluid Neutrophils Fluid Lymphocytes Fl Pathologist Comment Fluid Glucose Fluid Total Protein Fluid LDH Fluid Comment 2 03/09/18 03/09/18 03/09/18 10:34 10:39 13:00 WBC RBC Hgb Hct MCV MCH MCHC RDW RDW Differential Plt Count MPV Immature Gran % (Auto) Neut % (Auto) Lymph % (Auto) [place] % (Auto) Eos % (Auto) Baso % (Auto) Absolute Neuts (auto) Absolute Lymphs (auto) Total Counted Differential Comment PT 13.4 INR 1.0 APTT 29.4 Specimen Type Sample Site pH Bicarbonate Actual POC Total CO2 Base Excess O2 Saturation ABG pCO2 ABG pO2 O2 Delivery Device Liter Flow Blood Gas Notified Whom Blood Gas Notified Time Sodium Potassium Chloride Carbon Dioxide Anion Gap BUN Creatinine Estim Creat Clear Calc Est GFR (MDRD) Af Amer Est GFR (MDRD) Non-Af BUN/Creatinine Ratio Glucose Hemoglobin A1c Calcium Magnesium Lactate Dehydrogenase 222 B-Natriuretic Peptide Total Protein 6.6 Globulin 3.7 Albumin/Globulin Ratio 0.8 L Fluid Source Fluid Color Fluid Appearance Fluid pH Fluid WBC Fluid RBC Fluid Tot Cell Count Fld Polynuclear WBCs # Fld Polynuclear WBCs % Fluid Mononuclear WBCs Fld Mononuclear WBCs % Fluid Neutrophils Fluid Lymphocytes Fl Pathologist Comment Fluid Glucose 127 H Fluid Total Protein 3.0 Fluid LDH 112 Fluid Comment 2 03/09/18 03/09/18 13:00 13:00 WBC RBC Hgb Hct MCV MCH MCHC RDW RDW Differential Plt Count MPV Immature Gran % (Auto) Neut % (Auto) Lymph % (Auto) [place] % (Auto) Eos % (Auto) Baso % (Auto) Absolute Neuts (auto) Absolute Lymphs (auto) Total Counted Differential Comment PT INR APTT Specimen Type Sample Site pH Bicarbonate Actual POC Total CO2 Base Excess O2 Saturation ABG pCO2 ABG pO2 O2 Delivery Device Liter Flow Blood Gas Notified Whom Blood Gas Notified Time Sodium Potassium Chloride Carbon Dioxide Anion Gap BUN Creatinine Estim Creat Clear Calc Est GFR (MDRD) Af Amer Est GFR (MDRD) Non-Af BUN/Creatinine Ratio Glucose Hemoglobin A1c Calcium Magnesium Lactate Dehydrogenase B-Natriuretic Peptide Total Protein Globulin Albumin/Globulin Ratio Fluid Source THORACENTESIS Fluid Color YELLOW Fluid Appearance SL CLDY Fluid pH Pending Fluid WBC 0.246 Fluid RBC 0.27406 Fluid Tot Cell Count 0.274 Fld Polynuclear WBCs # 0.025 Fld Polynuclear WBCs % 10.2 Fluid Mononuclear WBCs 0.221 Fld Mononuclear WBCs % 89.8 Fluid Neutrophils 6 Fluid Lymphocytes 94 Fl Pathologist Comment May follow Fluid Glucose Fluid Total Protein Fluid LDH Fluid Comment 2 SEE COMMENT POC Glucose 03/09/18 03/09/18 03/08/18 11:22 06:48 21:58 POC Glucose 139 H 125 H 263 H Assessment/Plan This patient was seen in conjunction with Jeet Morales PA-C . I have independently interviewed and examined the patient and reviewed pertinent historical, laboratory, and other data. Please refer to Jeet Morales PA-C note for details of this patient's presentation, findings, and recommendations. I have reviewed Jeet Morales PA-C note and concur with documented findings. In brief, patient is a 77-year-old male with multiple comorbidities including paroxysmal atrial fibrillation, hypoxic respiratory failure secondary to COPD who presented with shortness of breath and assessment of COPD with acute exacerbation was made. Patient was also found to have moderate right-sided pleural effusion for which an ultrasound-guided thoracocentesis was ordered. Physical Examination: GENERAL: cooperative jittery HEENT: Atraumatic; EYES; Anicteric, Normal Conjunctiva NECK; supple, normal thyroid, RESPIRATORY: Diminished to auscultation bilaterally, CARDIOVASCULAR: Irregular S1-S2 GI: soft, non-tender, normoactive bowel sounds, : No Renal angle tenderness; NEURO: Awake; SKIN: No Rash PSYCH; flat affect Assessment: 1. Acute on chronic hypoxic respiratory failure secondary to combination of COPD and CHF exacerbation 2. COPD with acute exacerbation 3. Acute diastolic congestive heart failure 4. Moderate right-sided pleural effusion 5. Paroxysmal atrial fibrillation 6. Essential hypertension 7. Diabetes mellitus type 2 8. Psoriatic arthritis 9. Chronic kidney disease stage III 10. Microcytic anemia 11. BPH on Flomax 12. DVT prophylaxis SC heparin Recommendations: 1. I have discussed the results of my overview and impressions with the patient 2. Options for management were reviewed Active Medications Acetaminophen (Tylenol) 650 mg PO Q6H PRN PRN PRN Reason: Mild Pain (scale 0-3)/T>100.7 Al Hydroxide/Mg Hydroxide (Mylanta Ii) 30 ml PO Q6H PRN PRN PRN Reason: Gastric burning Albuterol Sulfate (Ventolin Aerosols) 2.5 mg INHALATION Q2H PRN PRN PRN Reason: SHORTNESS OF BREATH Albuterol/Ipratropium (Duoneb) 3 ml INHALATION Q4H.RT [facility] Last Admin: 03/09/18 14:55 Dose: 3 ml Amlodipine Besylate (Norvasc) 10 mg PO DAILY [facility] Last Admin: 03/09/18 09:03 Dose: 10 mg Aspirin (Aspirin, Baby) 81 mg PO DAILY@0800 [facility] Last Admin: 03/09/18 09:04 Dose: Not Given Atorvastatin Calcium (Lipitor) 40 mg PO QHS [facility] Last Admin: 03/08/18 22:00 Dose: 40 mg Fluticasone Propionate (Flonase Nasal [place]) 2 spray NASAL DAILY [facility] Last Admin: 03/09/18 09:03 Dose: 2 spray Furosemide (Lasix) 40 mg IV BID@1000,1800 [facility] Guaifenesin (Mucinex) 1,200 mg PO BID [facility] Last Admin: 03/09/18 09:03 Dose: 1,200 mg Heparin Sodium (Porcine) (Heparin Na) 5,000 unit SC Q12 [facility] Last Admin: 03/09/18 09:04 Dose: Not Given Hydralazine HCl (Apresoline Iv) 10 mg IV Q4H PRN PRN PRN Reason: SBP > 160 Last Admin: 03/09/18 04:41 Dose: 10 mg Insulin Human Lispro (Humalog Kwikpen (Bkc)) 0 unit SC ACHS [facility]; Protocol Last Admin: 03/09/18 12:09 Dose: Not Given Latanoprost (Xalatan Opthalmic) 2 drop EACH EYE DAILY [facility] Last Admin: 03/09/18 09:03 Dose: 2 drop Lisinopril (Zestril) 40 mg PO DAILY [facility] Last Admin: 03/09/18 09:03 Dose: 40 mg Lorazepam (Ativan) 0.5 mg IV Q4H PRN PRN PRN Reason: ANXIETY/RESTLESSNESS/SLEEP Last Admin: 03/09/18 12:09 Dose: 0.5 mg Magnesium Hydroxide (Milk Of Magnesia) 30 ml PO DAILY PRN PRN Reason: Constipation Methylprednisolone (Solu-Medrol) 40 mg IV Q8 [facility] Last Admin: 03/09/18 13:38 Dose: 40 mg Ondansetron HCl (Zofran) 4 mg IV Q8H PRN PRN PRN Reason: NAUSEA Promethazine HCl (Phenergan) 12.5 mg IV Q6H PRN PRN PRN Reason: NAUSEA/VOMITING Sodium Chloride ([place] Nasal [place]) 1 - 2 spray NASAL Q1H PRN PRN PRN Reason: dryness Sodium Chloride () 5 - 30 ml IV UD PRN PRN Reason: SALINE FLUSH Last Admin: 03/09/18 13:38 Dose: 10 ml Sulfasalazine (Azulfidine) 1,000 mg PO BIDCM [facility] Last Admin: 03/09/18 09:03 Dose: 1,000 mg Tamsulosin HCl (Flomax) 0.4 mg PO DAILY@0830 [facility] Last Admin: 03/09/18 08:07 Dose: 0.4 mg Clinical Impression(s) from Imaging Studies Chest X-Ray 03/08/18 14:13 IMPRESSION: Right pleural effusion with underlying infiltration and/or atelectasis superimposed on chronic scarring. Calcified right pleural plaques. Electronically Signed: Jens Gomez MD at 15:13 EST Tel [phone], Service support , Thoracentesis Ultrasound 03/09/18 08:00 IMPRESSION: Ultrasound-guided right thoracentesis. Electronically Signed: Jens Gomez MD at 13:52 EST Tel [phone], Service support , Code Visit Inpatient E&M: [id number] [facility] L3
--- NOTE | 2018-03-09 13:33 | PN_ITS ---
<Jeet Morales - Last Filed: 03/09/18 13:26> Patient Problems: Active and Suspected Problems Acute respiratory failure with hypoxia (Acute) COPD exacerbation (Acute) Subjective: SOB continues. He desaturated to the low 80s while talking to me on 6lpm. He has no CP. He has cough with white sputum production. No hemoptysis. He smoked 1-2 ppd for 50+ years, quit this past year in july. He follows Dr. Van. He uses home o2 4 lpm, no cpap/bipap at home. No hx blood clots. - Physical Exam General: Alert, Oriented x3, Cooperative HEENT: Atraumatic, PERRLA, EOMI, Normocephalic Neck: Supple, No JVD, Negative Carotid Bruits Lungs: Diminished, Rales Cardiovascular: Regular rate, No murmurs Abdomen: Bowel Sounds Present, Soft, Non Tender Extremities: No edema, Capillary Refill Less than 3 Seconds Skin: No rashes, No breakdown Musculoskeletal: No Tenderness to Palpation of Joints or Extremities Neurological: Cranial nerves II-XII grossly intact Psych/Mental Status: Normal Affect, Appropriate Vital Signs Temp Pulse Resp BP Pulse Ox 98.1 F 80 16 160/78 H 95 03/09/18 10:18 03/09/18 11:36 03/09/18 11:36 03/09/18 10:18 03/09/18 10:18 Oxygen Flow Rate (L/min) 6 Oxygen Delivery Method Nasal Cannula Weight: 177 lb 0.499 oz Body Mass Index (BMI) 25.4 Intake and Output for Last 24 Hours 03/07/18 03/08/18 03/09/18 23:59 23:59 23:59 Intake Total 240 / 240 60 / 60 Output Total 525 / 525 550 / 550 Balance -285 / -285 -490 / -490 Microbiology Past 72 Hours 03/08/18 20:58 Respiratory Panel (PCR) - Final Mucosa - Nose Laboratory Tests Past 24 Hrs 03/08/18 03/08/18 03/08/18 15:20 15:20 15:20 WBC 6.2 RBC 3.01 L Hgb 9.1 L Hct 30.8 L MCV 102.3 H MCH 30.2 MCHC 29.5 L RDW 13.6 RDW Differential 50.8 H Plt Count 228 MPV 9.0 Immature Gran % (Auto) 0.200 Neut % (Auto) 71.5 H Lymph % (Auto) 13.6 L [place] % (Auto) 8.9 Eos % (Auto) 5.5 H Baso % (Auto) 0.3 Absolute Neuts (auto) 4.4 Absolute Lymphs (auto) 0.84 Total Counted Not Reportable Differential Comment PT INR APTT Specimen Type Sample Site pH Bicarbonate Actual POC Total CO2 Base Excess O2 Saturation ABG pCO2 ABG pO2 O2 Delivery Device Liter Flow Blood Gas Notified Whom Blood Gas Notified Time Sodium 135 L Potassium 4.5 Chloride 98 Carbon Dioxide 35.0 H Anion Gap 2 L BUN 23 H Creatinine 1.32 H Estim Creat Clear Calc 49.93 Est GFR (MDRD) Af Amer 68 Est GFR (MDRD) Non-Af 56 L BUN/Creatinine Ratio 17.4 Glucose 132 H Hemoglobin A1c Calcium 8.4 L Magnesium 1.9 Lactate Dehydrogenase Troponin I 0.026 B-Natriuretic Peptide Total Protein Globulin Albumin/Globulin Ratio 03/08/18 03/08/18 03/09/18 15:20 17:57 06:18 WBC 4.3 L RBC 2.88 L Hgb 8.9 L Hct 29.9 L MCV 103.8 H MCH 30.9 MCHC 29.8 L RDW 12.9 RDW Differential 47.3 H Plt Count 252 MPV 9.3 Immature Gran % (Auto) 0.200 Neut % (Auto) 80.6 H Lymph % (Auto) 10.4 L [place] % (Auto) 8.6 Eos % (Auto) 0.0 Baso % (Auto) 0.2 Absolute Neuts (auto) 3.5 Absolute Lymphs (auto) 0.45 L Total Counted Not Reportable Differential Comment SCANNED PT INR APTT Specimen Type ART Sample Site L Brachial pH 7.34 L Bicarbonate Actual 31.8 H POC Total CO2 34 Base Excess 6 H O2 Saturation 87 L ABG pCO2 59.5 H ABG pO2 58 L O2 Delivery Device Nasal Can Liter Flow 5.0 Blood Gas Notified Whom [facility] Blood Gas Notified Time 1755 Sodium Potassium Chloride Carbon Dioxide Anion Gap BUN Creatinine Estim Creat Clear Calc Est GFR (MDRD) Af Amer Est GFR (MDRD) Non-Af BUN/Creatinine Ratio Glucose Hemoglobin A1c 5.0 Calcium Magnesium Lactate Dehydrogenase Troponin I B-Natriuretic Peptide Total Protein Globulin Albumin/Globulin Ratio 03/09/18 03/09/18 03/09/18 06:18 10:34 10:34 WBC RBC Hgb Hct MCV MCH MCHC RDW RDW Differential Plt Count MPV Immature Gran % (Auto) Neut % (Auto) Lymph % (Auto) [place] % (Auto) Eos % (Auto) Baso % (Auto) Absolute Neuts (auto) Absolute Lymphs (auto) Total Counted Differential Comment PT INR APTT Specimen Type Sample Site pH Bicarbonate Actual POC Total CO2 Base Excess O2 Saturation ABG pCO2 ABG pO2 O2 Delivery Device Liter Flow Blood Gas Notified Whom Blood Gas Notified Time Sodium 140 Potassium 4.4 Chloride 99 Carbon Dioxide 35.0 H Anion Gap 6 BUN 23 H Creatinine 1.33 H Estim Creat Clear Calc 49.55 Est GFR (MDRD) Af Amer 67 Est GFR (MDRD) Non-Af 56 L BUN/Creatinine Ratio 17.3 Glucose 123 H Hemoglobin A1c Calcium 8.2 L Magnesium Lactate Dehydrogenase 222 Troponin I B-Natriuretic Peptide 724.2 H Total Protein 6.6 Globulin 3.7 Albumin/Globulin Ratio 0.8 L 03/09/18 10:39 WBC RBC Hgb Hct MCV MCH MCHC RDW RDW Differential Plt Count MPV Immature Gran % (Auto) Neut % (Auto) Lymph % (Auto) [place] % (Auto) Eos % (Auto) Baso % (Auto) Absolute Neuts (auto) Absolute Lymphs (auto) Total Counted Differential Comment PT 13.4 INR 1.0 APTT 29.4 Specimen Type Sample Site pH Bicarbonate Actual POC Total CO2 Base Excess O2 Saturation ABG pCO2 ABG pO2 O2 Delivery Device Liter Flow Blood Gas Notified Whom Blood Gas Notified Time Sodium Potassium Chloride Carbon Dioxide Anion Gap BUN Creatinine Estim Creat Clear Calc Est GFR (MDRD) Af Amer Est GFR (MDRD) Non-Af BUN/Creatinine Ratio Glucose Hemoglobin A1c Calcium Magnesium Lactate Dehydrogenase Troponin I B-Natriuretic Peptide Total Protein Globulin Albumin/Globulin Ratio POC Glucose 03/09/18 03/09/18 03/08/18 11:22 06:48 21:58 POC Glucose 139 H 125 H 263 H Medical Necessity - Tobacco Use Smoking Status: Former smoker Tobacco Use: Non-smoker Assessment/Plan All Active Problems Acute respiratory failure with hypoxia (Acute) COPD exacerbation (Acute) 1. Acute on chronic mixed respiratory failure 2/2 acute copd exacerbation and acute CHF exacerbation (type unclear) - moderate pleural effusion. To thora today. Fluid panel ordered. add lasix. Continue steroids + aerosols. BNP significantly elevated. Echo pending. Afebrile no leukocytosis. Viral panel negative. Pt refused BiPAP overnight. Severe smoking hx 1-2 ppd x 50 years quit [address] Van. 2. PAF - SR. hx GI bleed. no OAC. 3. HTN - somewat elevated. trend. 4. HLD - statin 5. DMt2 - diet controlled. A1c 5.0. 6. CKDIII - stable. monitor with lasix. 7. Psoriatic arthritis -sulfasalazine 8. macrocytic anemia - continue folate. 9. BPH - check post void, possibly contributing to #1. continue flomax DVT ppx: heparin DC planning: ptot This patient was seen by Jeet Morales PA-C under the supervision of Doctor Radha. <Mushtaq Garcia - Last Filed: 03/09/18 16:30> - Physical Exam Vital Signs Temp Pulse Resp BP Pulse Ox 98.1 F 93 16 139/69 H 94 03/09/18 10:18 03/09/18 15:03 03/09/18 14:55 03/09/18 13:20 03/09/18 13:53 Oxygen Flow Rate (L/min) 6 Oxygen Delivery Method Nasal Cannula Weight: 80.3 kg Body Mass Index (BMI) 25.4 Intake and Output for Last 24 Hours 03/07/18 03/08/18 03/09/18 23:59 23:59 23:59 Intake Total 240 / 240 60 / 60 Output Total 525 / 525 1270 / 1270 Balance -285 / -285 -1210 / -1210 Microbiology Past 72 Hours 03/09/18 08:00 Gram Stain - Final Sputum, Expectorated/Coughed 03/09/18 13:00 Gram Stain - Final Fluid - Thoracentesis Fluid 03/08/18 20:58 Respiratory Panel (PCR) - Final Mucosa - Nose Laboratory Tests Past 24 Hrs 03/08/18 03/08/18 03/08/18 15:20 15:20 17:57 WBC RBC Hgb Hct MCV MCH MCHC RDW RDW Differential Plt Count MPV Immature Gran % (Auto) Neut % (Auto) Lymph % (Auto) [place] % (Auto) Eos % (Auto) Baso % (Auto) Absolute Neuts (auto) Absolute Lymphs (auto) Total Counted Differential Comment PT INR APTT Specimen Type ART Sample Site L Brachial pH 7.34 L Bicarbonate Actual 31.8 H POC Total CO2 34 Base Excess 6 H O2 Saturation 87 L ABG pCO2 59.5 H ABG pO2 58 L O2 Delivery Device Nasal Can Liter Flow 5.0 Blood Gas Notified Whom [facility] Blood Gas Notified Time 1755 Sodium Potassium Chloride Carbon Dioxide Anion Gap BUN Creatinine Estim Creat Clear Calc Est GFR (MDRD) Af Amer Est GFR (MDRD) Non-Af BUN/Creatinine Ratio Glucose Hemoglobin A1c 5.0 Calcium Magnesium 1.9 Lactate Dehydrogenase B-Natriuretic Peptide Total Protein Globulin Albumin/Globulin Ratio Fluid Source Fluid Color Fluid Appearance Fluid pH Fluid WBC Fluid RBC Fluid Tot Cell Count Fld Polynuclear WBCs # Fld Polynuclear WBCs % Fluid Mononuclear WBCs Fld Mononuclear WBCs % Fluid Neutrophils Fluid Lymphocytes Fl Pathologist Comment Fluid Glucose Fluid Total Protein Fluid LDH Fluid Comment 2 03/09/18 03/09/18 03/09/18 06:18 06:18 10:34 WBC 4.3 L RBC 2.88 L Hgb 8.9 L Hct 29.9 L MCV 103.8 H MCH 30.9 MCHC 29.8 L RDW 12.9 RDW Differential 47.3 H Plt Count 252 MPV 9.3 Immature Gran % (Auto) 0.200 Neut % (Auto) 80.6 H Lymph % (Auto) 10.4 L [place] % (Auto) 8.6 Eos % (Auto) 0.0 Baso % (Auto) 0.2 Absolute Neuts (auto) 3.5 Absolute Lymphs (auto) 0.45 L Total Counted Not Reportable Differential Comment SCANNED PT INR APTT Specimen Type Sample Site pH Bicarbonate Actual POC Total CO2 Base Excess O2 Saturation ABG pCO2 ABG pO2 O2 Delivery Device Liter Flow Blood Gas Notified Whom Blood Gas Notified Time Sodium 140 Potassium 4.4 Chloride 99 Carbon Dioxide 35.0 H Anion Gap 6 BUN 23 H Creatinine 1.33 H Estim Creat Clear Calc 49.55 Est GFR (MDRD) Af Amer 67 Est GFR (MDRD) Non-Af 56 L BUN/Creatinine Ratio 17.3 Glucose 123 H Hemoglobin A1c Calcium 8.2 L Magnesium Lactate Dehydrogenase B-Natriuretic Peptide 724.2 H Total Protein Globulin Albumin/Globulin Ratio Fluid Source Fluid Color Fluid Appearance Fluid pH Fluid WBC Fluid RBC Fluid Tot Cell Count Fld Polynuclear WBCs # Fld Polynuclear WBCs % Fluid Mononuclear WBCs Fld Mononuclear WBCs % Fluid Neutrophils Fluid Lymphocytes Fl Pathologist Comment Fluid Glucose Fluid Total Protein Fluid LDH Fluid Comment 2 03/09/18 03/09/18 03/09/18 10:34 10:39 13:00 WBC RBC Hgb Hct MCV MCH MCHC RDW RDW Differential Plt Count MPV Immature Gran % (Auto) Neut % (Auto) Lymph % (Auto) [place] % (Auto) Eos % (Auto) Baso % (Auto) Absolute Neuts (auto) Absolute Lymphs (auto) Total Counted Differential Comment PT 13.4 INR 1.0 APTT 29.4 Specimen Type Sample Site pH Bicarbonate Actual POC Total CO2 Base Excess O2 Saturation ABG pCO2 ABG pO2 O2 Delivery Device Liter Flow Blood Gas Notified Whom Blood Gas Notified Time Sodium Potassium Chloride Carbon Dioxide Anion Gap BUN Creatinine Estim Creat Clear Calc Est GFR (MDRD) Af Amer Est GFR (MDRD) Non-Af BUN/Creatinine Ratio Glucose Hemoglobin A1c Calcium Magnesium Lactate Dehydrogenase 222 B-Natriuretic Peptide Total Protein 6.6 Globulin 3.7 Albumin/Globulin Ratio 0.8 L Fluid Source Fluid Color Fluid Appearance Fluid pH Fluid WBC Fluid RBC Fluid Tot Cell Count Fld Polynuclear WBCs # Fld Polynuclear WBCs % Fluid Mononuclear WBCs Fld Mononuclear WBCs % Fluid Neutrophils Fluid Lymphocytes Fl Pathologist Comment Fluid Glucose 127 H Fluid Total Protein 3.0 Fluid LDH 112 Fluid Comment 2 03/09/18 03/09/18 13:00 13:00 WBC RBC Hgb Hct MCV MCH MCHC RDW RDW Differential Plt Count MPV Immature Gran % (Auto) Neut % (Auto) Lymph % (Auto) [place] % (Auto) Eos % (Auto) Baso % (Auto) Absolute Neuts (auto) Absolute Lymphs (auto) Total Counted Differential Comment PT INR APTT Specimen Type Sample Site pH Bicarbonate Actual POC Total CO2 Base Excess O2 Saturation ABG pCO2 ABG pO2 O2 Delivery Device Liter Flow Blood Gas Notified Whom Blood Gas Notified Time Sodium Potassium Chloride Carbon Dioxide Anion Gap BUN Creatinine Estim Creat Clear Calc Est GFR (MDRD) Af Amer Est GFR (MDRD) Non-Af BUN/Creatinine Ratio Glucose Hemoglobin A1c Calcium Magnesium Lactate Dehydrogenase B-Natriuretic Peptide Total Protein Globulin Albumin/Globulin Ratio Fluid Source THORACENTESIS Fluid Color YELLOW Fluid Appearance SL CLDY Fluid pH Pending Fluid WBC 0.246 Fluid RBC 0.62510 Fluid Tot Cell Count 0.274 Fld Polynuclear WBCs # 0.025 Fld Polynuclear WBCs % 10.2 Fluid Mononuclear WBCs 0.221 Fld Mononuclear WBCs % 89.8 Fluid Neutrophils 6 Fluid Lymphocytes 94 Fl Pathologist Comment May follow Fluid Glucose Fluid Total Protein Fluid LDH Fluid Comment 2 SEE COMMENT POC Glucose 03/09/18 03/09/18 03/08/18 11:22 06:48 21:58 POC Glucose 139 H 125 H 263 H Assessment/Plan This patient was seen in conjunction with Jeet Morales PA-C . I have independently interviewed and examined the patient and reviewed pertinent historical, laboratory, and other data. Please refer to Jeet Morales PA-C note for details of this patient's presentation, findings, and recommendations. I have reviewed Jeet Morales PA-C note and concur with documented findings. In brief, patient is a 77-year-old male with multiple comorbidities including paroxysmal atrial fibrillation, hypoxic respiratory failure secondary to COPD who presented with shortness of breath and assessment of COPD with acute exacerbation was made. Patient was also found to have moderate right-sided pleural effusion for which an ultrasound-guided thoracocentesis was ordered. Physical Examination: GENERAL: cooperative jittery HEENT: Atraumatic; EYES; Anicteric, Normal Conjunctiva NECK; supple, normal thyroid, RESPIRATORY: Diminished to auscultation bilaterally, CARDIOVASCULAR: Irregular S1-S2 GI: soft, non-tender, normoactive bowel sounds, : No Renal angle tenderness; NEURO: Awake; SKIN: No Rash PSYCH; flat affect Assessment: 1. Acute on chronic hypoxic respiratory failure secondary to combination of COPD and CHF exacerbation 2. COPD with acute exacerbation 3. Acute diastolic congestive heart failure 4. Moderate right-sided pleural effusion 5. Paroxysmal atrial fibrillation 6. Essential hypertension 7. Diabetes mellitus type 2 8. Psoriatic arthritis 9. Chronic kidney disease stage III 10. Microcytic anemia 11. BPH on Flomax 12. DVT prophylaxis SC heparin Recommendations: 1. I have discussed the results of my overview and impressions with the patient 2. Options for management were reviewed Active Medications Acetaminophen (Tylenol) 650 mg PO Q6H PRN PRN PRN Reason: Mild Pain (scale 0-3)/T>100.7 Al Hydroxide/Mg Hydroxide (Mylanta Ii) 30 ml PO Q6H PRN PRN PRN Reason: Gastric burning Albuterol Sulfate (Ventolin Aerosols) 2.5 mg INHALATION Q2H PRN PRN PRN Reason: SHORTNESS OF BREATH Albuterol/Ipratropium (Duoneb) 3 ml INHALATION Q4H.RT [facility] Last Admin: 03/09/18 14:55 Dose: 3 ml Amlodipine Besylate (Norvasc) 10 mg PO DAILY [facility] Last Admin: 03/09/18 09:03 Dose: 10 mg Aspirin (Aspirin, Baby) 81 mg PO DAILY@0800 [facility] Last Admin: 03/09/18 09:04 Dose: Not Given Atorvastatin Calcium (Lipitor) 40 mg PO QHS [facility] Last Admin: 03/08/18 22:00 Dose: 40 mg Fluticasone Propionate (Flonase Nasal [place]) 2 spray NASAL DAILY [facility] Last Admin: 03/09/18 09:03 Dose: 2 spray Furosemide (Lasix) 40 mg IV BID@1000,1800 [facility] Guaifenesin (Mucinex) 1,200 mg PO BID [facility] Last Admin: 03/09/18 09:03 Dose: 1,200 mg Heparin Sodium (Porcine) (Heparin Na) 5,000 unit SC Q12 [facility] Last Admin: 03/09/18 09:04 Dose: Not Given Hydralazine HCl (Apresoline Iv) 10 mg IV Q4H PRN PRN PRN Reason: SBP > 160 Last Admin: 03/09/18 04:41 Dose: 10 mg Insulin Human Lispro (Humalog Kwikpen (Bkc)) 0 unit SC ACHS [facility]; Protocol Last Admin: 03/09/18 12:09 Dose: Not Given Latanoprost (Xalatan Opthalmic) 2 drop EACH EYE DAILY [facility] Last Admin: 03/09/18 09:03 Dose: 2 drop Lisinopril (Zestril) 40 mg PO DAILY [facility] Last Admin: 03/09/18 09:03 Dose: 40 mg Lorazepam (Ativan) 0.5 mg IV Q4H PRN PRN PRN Reason: ANXIETY/RESTLESSNESS/SLEEP Last Admin: 03/09/18 12:09 Dose: 0.5 mg Magnesium Hydroxide (Milk Of Magnesia) 30 ml PO DAILY PRN PRN Reason: Constipation Methylprednisolone (Solu-Medrol) 40 mg IV Q8 [facility] Last Admin: 03/09/18 13:38 Dose: 40 mg Ondansetron HCl (Zofran) 4 mg IV Q8H PRN PRN PRN Reason: NAUSEA Promethazine HCl (Phenergan) 12.5 mg IV Q6H PRN PRN PRN Reason: NAUSEA/VOMITING Sodium Chloride ([place] Nasal [place]) 1 - 2 spray NASAL Q1H PRN PRN PRN Reason: dryness Sodium Chloride () 5 - 30 ml IV UD PRN PRN Reason: SALINE FLUSH Last Admin: 03/09/18 13:38 Dose: 10 ml Sulfasalazine (Azulfidine) 1,000 mg PO BIDCM [facility] Last Admin: 03/09/18 09:03 Dose: 1,000 mg Tamsulosin HCl (Flomax) 0.4 mg PO DAILY@0830 [facility] Last Admin: 03/09/18 08:07 Dose: 0.4 mg Clinical Impression(s) from Imaging Studies Chest X-Ray 03/08/18 14:13 IMPRESSION: Right pleural effusion with underlying infiltration and/or atelectasis superimposed on chronic scarring. Calcified right pleural plaques. Electronically Signed: Jens Gomez MD at 15:13 EST Tel [phone], Service support , Thoracentesis Ultrasound 03/09/18 08:00 IMPRESSION: Ultrasound-guided right thoracentesis. Electronically Signed: Jens Gomez MD at 13:52 EST Tel [phone], Service support , Code Visit Inpatient E&M: 08409 [facility] Hosp L3
[2018-03-09 14:00] LABS: Body Fluid Mononuclear WBC # 0.221 10^3/uL; Body Fluid Mononuclear WBC % 89.8 %; Body Fluid Polynuclear WBC # 0.025 10^3/uL; Body Fluid Polynuclear WBC % 10.2 %; Body Fluid Total Cells Counted 0.274 10^3/ul; White Blood Count/Body Fluid 0.246 10^3/uL
[2018-03-09 14:01] LABS: Appearance/Body Fluid SL CLDY; Auto B Fluid Analyzer BKGD Ct COUNTS W/IN LIMITS (W/IN LIMITS); Color/Body Fluid YELLOW; Source- Body Fluid THORACENTESIS
[2018-03-09 14:17] LABS: Glucose, Body Fluid 127 mg/dL (40-70); LDH,Body Fluid 112 Units/l (Not Establ.)
[2018-03-09 15:16] LABS: Body Fluid QC Type(s) BF4Q; Lymphocytes 94 %; Neutrophil (Segs) 6 %
[2018-03-09 16:55] LABS: Bedside Glucose 158 mg/dL (70-110)
[2018-03-09] MEDS: Furosemide 40 MG/4 ML Vial IV (17:13)
[2018-03-09] MEDS: Insulin Lispro 100 UNIT/ML INSULN.PEN SC (18:05)
--- NOTE | 2018-03-09 22:11 | NURSING ---
This RN taking over patient care at this time.
[2018-03-09] MEDS: Atorvastatin Calcium 40 MG Tablet PO (22:23)
[2018-03-09] MEDS: Heparin Injection (Vial) 5,000 UNIT/ML VIAL 5000 UNIT SC (22:23)
[2018-03-09 22:36] LABS: Bedside Glucose 141 mg/dL (70-110)
[2018-03-10] VITALS (20 sets, daily range): BP systolic 144–171; BP diastolic 70–83; PULSE 75–100; RESP 16–20; TEMP 36.7–37.1; O2SAT 90–98
[2018-03-10] MEDS: 0.9% NaCl Peripheral Flush Adult/Peds IV ×3 (05:36→17:50)
[2018-03-10 06:37] LABS: Absolute Neutrophil Count 6.7 X10^3/uL (2.0-7.7); Basophil# 0.01 X10^3/uL; Basophil% 0.1 % (0-1); Eosinophil# 0.01 X10^3/uL; Eosinophils% 0.1 % (0-5); Hematocrit 30.5 % (40-54); Hemoglobin 9.1 g/dl (13.0-16.5); Lymphocyte % 6.4 % (19-41); Mean Corp Hgb Conc 29.8 g/gl (32-36); Mean Corpuscular Hgb 30.4 pg (27.0-32.0); Mean Platelet Vol. 9.3 fl (6.2-12.0); Monocyte# 0.52 X10^3/uL; Monocyte% 6.7 % (0-10); Neutrophil # 6.73 X10^3/uL (2.7-7.7); Neutrophil % 86.4 % (47-70); Platelet Count 255 K/mm3 (150-450); RBC Distribution Width CV 13.8 % (11.6-14.6); RBC Distribution Width SD 51.7 fl (35.1-43.9); Red Blood Count 2.99 M/mm3 (4.6-6.2); White Blood Count 7.8 K/mm3 (4.4-11.0)
[2018-03-10 06:39] LABS: Differential Indicated SCAN CRITERIA MET; POSITIVE COUNT NO; POSITIVE DIFFERENTIAL YES; POSITIVE MORPHOLOGY NO
[2018-03-10 06:48] LABS: Anion Gap 5 (5-15); BUN 33 mg/dL (7-18); BUN/Creat Ratio 19.1 RATIO (10-20); Calcium,Total 8.6 mg/dL (8.5-10.1); Chloride 98 mmol/L (98-107); Creatinine, Serum 1.73 mg/dL (0.70-1.30); EST Glomerular Filtration Rate 41 mL/min (>60); Est Glom Filt Rate - Afr Amer 50 mL/min (>60); Estimated Creatinine Clearance 38.09 ml/min; Glucose 123 mg/dL (74-106); Potassium 4.7 mmol/L (3.5-5.1); Sodium Level 137 mmol/L (136-145)
[2018-03-10 06:56] LABS: Bedside Glucose 122 mg/dL (70-110)
[2018-03-10] MEDS: Ipratropium/Albuterol Sulfate 3 ML AMPUL.NEB INHALATION ×5 (07:27→23:13)
--- NOTE | 2018-03-10 08:27 | RAD_ITS ---
STUDY: X-RAY CHEST REASON FOR EXAM: Male, 77 years old. Shortness of breath/dyspnea. TECHNIQUE: PA and lateral views of the chest. COMPARISON: Comparison is made with prior study dated March 09, 2018. FINDINGS: EKG electrodes are seen. Stable pleural parenchymal changes at the right lung base. Stable increased markings in the right upper lobe. The left lung is hyperexpanded. Normal size heart. Normal mediastinum and jayla. Normal visualized pulmonary arteries. Normal visualized aortic arch and descending thoracic aorta. There are diffuse degenerative changes of the visualized thoracic spine. There is degenerative osteoarthritis of the bilateral shoulders. There is no demonstrated abnormality of the visualized soft tissue structures of the upper abdomen. RAD/Chest PA and Lateral IMPRESSION: Stable pleural parenchymal changes at the right lung base with stable increased markings in the right upper lobe. Electronically Signed: Jens Gomez MD at 13:38 EST Tel [phone], Service support ,
[2018-03-10] MEDS: Tamsulosin HCl 0.4 MG Capsule PO (09:03)
[2018-03-10] MEDS: sulfaSALAzine 500 MG Tablet 1000 MG PO ×2 (09:03→16:08)
[2018-03-10] MEDS: Aspirin 81 MG TAB.CHEW PO (09:03)
[2018-03-10 09:33] LABS: Pathologist Comment/Body Fluid Reviewed
[2018-03-10] MEDS: Fluticasone 0.05% 1 SPRAY NASAL.SRY 2 SPRAY NASAL (11:08)
[2018-03-10] MEDS: Heparin Injection (Vial) 5,000 UNIT/ML VIAL 5000 UNIT SC ×2 (11:10→21:51)
[2018-03-10] MEDS: guaiFENesin 1,200 MG Tablet 1200 MG PO ×2 (11:11→21:52)
[2018-03-10] MEDS: Furosemide 40 MG/4 ML Vial IV (11:11)
[2018-03-10] MEDS: amLODIPine 10 MG Tablet PO (11:12)
[2018-03-10] MEDS: Latanoprost 0.005% 1 Bottle 2 DRP EACH EYE (11:12)
[2018-03-10] MEDS: Lisinopril 40 MG Tablet PO (11:13)
[2018-03-10] MEDS: Insulin Lispro 100 UNIT/ML INSULN.PEN SC ×2 (11:20→16:08)
[2018-03-10 11:31] LABS: Bedside Glucose 171 mg/dL (70-110)
--- NOTE | 2018-03-10 11:48 | CPS ---
pt changed from 6 lpm nasal cannula to 40% venti mask. nurse aware of change
--- NOTE | 2018-03-10 11:59 | PCM.DC ---
- Discharge Diagnoses Current Active Problems: Current Active and Chronic Problems COPD (chronic obstructive pulmonary disease) (Chronic) PAF (paroxysmal atrial fibrillation) (Chronic) HTN (hypertension) (Chronic) HLD (hyperlipidemia) (Chronic) Psoriatic arthritis (Chronic) Chronic respiratory failure with hypoxia (Chronic) CKD (chronic kidney disease) stage 3, GFR 30-59 ml/min (Chronic) Anemia (Chronic) PAD (peripheral artery disease) (Chronic) Diabetes mellitus, type II (Chronic) Acute respiratory failure with hypoxia (Acute) COPD exacerbation (Acute) You will use the following diet at home:: Cardiac Discharge Activity: Return to Normal Activity Call your doctor if you observe: Shortness of breath, Dizziness, Fainting spells, Chest pain Allergies/Adverse Reactions: Allergies No Known Allergies Allergy (Verified 03/08/18 14:02) Medications to take at Discharge Albuterol Sulfate [Ventolin Hfa] 2 puff INHALATION PRN PRN 03/08/18 Aspirin [Aspirin, Baby] 81 mg PO DAILY 03/08/18 Atorvastatin Calcium 40 mg PO QHS 03/08/18 Felodipine [Plendil] 10 mg PO DAILY 03/08/18 Fluticasone Propionate 2 spray NASAL DAILY 03/08/18 Guaifenesin 800 mg PO BID 03/08/18 Ipratropium/Albuterol Sulfate [Duoneb] 3 ml INHALATION Q4H 03/08/18 Latanoprost 2 drop EACH EYE DAILY 03/08/18 Lisinopril [Zestril] 40 mg PO DAILY 03/08/18 Sodium Chloride 0.65% [[place] Nasal [place]] 1 - 2 spray NASAL PRN PRN 03/08/18 Sulfasalazine [Azulfidine] 1,000 mg PO BID 03/08/18 Tamsulosin HCl [Flomax] 0.4 mg PO DAILY 03/08/18 Furosemide [Lasix] 40 mg PO DAILY #30 tablet 03/10/18 Prednisone See Taper PO DAILY #30 tablet 03/10/18 The following prescriptions were given: Furosemide [Lasix] 40 mg PO DAILY #30 tablet Prednisone See Taper PO DAILY #30 tablet Primary Care Physician: Alexis Vaz MD [Primary Care Provider] - Please follow up with your Primary Care Physician in: 1 Week Test Results: Test results from this visit will be discussed in further detail at your follow-up appointment, if applicable. Please Follow Up With: Haider Van MD When: 1-2 Weeks Proposed Discharge Date: 03/10/18
--- NOTE | 2018-03-10 12:03 | DCINST_ITS ---
- Discharge Diagnoses Current Active Problems: Current Active and Chronic Problems COPD (chronic obstructive pulmonary disease) (Chronic) PAF (paroxysmal atrial fibrillation) (Chronic) HTN (hypertension) (Chronic) HLD (hyperlipidemia) (Chronic) Psoriatic arthritis (Chronic) Chronic respiratory failure with hypoxia (Chronic) CKD (chronic kidney disease) stage 3, GFR 30-59 ml/min (Chronic) Anemia (Chronic) PAD (peripheral artery disease) (Chronic) Diabetes mellitus, type II (Chronic) Acute respiratory failure with hypoxia (Acute) COPD exacerbation (Acute) You will use the following diet at home:: Cardiac Discharge Activity: Return to Normal Activity Call your doctor if you observe: Shortness of breath, Dizziness, Fainting spells, Chest pain Allergies/Adverse Reactions: Allergies No Known Allergies Allergy (Verified 03/08/18 14:02) Medications to take at Discharge Albuterol Sulfate [Ventolin Hfa] 2 puff INHALATION PRN PRN 03/08/18 Aspirin [Aspirin, Baby] 81 mg PO DAILY 03/08/18 Atorvastatin Calcium 40 mg PO QHS 03/08/18 Felodipine [Plendil] 10 mg PO DAILY 03/08/18 Fluticasone Propionate 2 spray NASAL DAILY 03/08/18 Guaifenesin 800 mg PO BID 03/08/18 Ipratropium/Albuterol Sulfate [Duoneb] 3 ml INHALATION Q4H 03/08/18 Latanoprost 2 drop EACH EYE DAILY 03/08/18 Lisinopril [Zestril] 40 mg PO DAILY 03/08/18 Sodium Chloride 0.65% [[place] Nasal [place]] 1 - 2 spray NASAL PRN PRN 03/08/18 Sulfasalazine [Azulfidine] 1,000 mg PO BID 03/08/18 Tamsulosin HCl [Flomax] 0.4 mg PO DAILY 03/08/18 Furosemide [Lasix] 40 mg PO DAILY #30 tablet 03/10/18 Prednisone See Taper PO DAILY #30 tablet 03/10/18 The following prescriptions were given: Furosemide [Lasix] 40 mg PO DAILY #30 tablet Prednisone See Taper PO DAILY #30 tablet Primary Care Physician: Alexis Vaz MD [Primary Care Provider] - Please follow up with your Primary Care Physician in: 1 Week Test Results: Test results from this visit will be discussed in further detail at your follow- up appointment, if applicable. Please Follow Up With: Haider Van MD When: 1-2 Weeks Proposed Discharge Date: 03/10/18
--- NOTE | 2018-03-10 12:11 | PCM.DC.SUM ---
<Sasha Rasmussen - Last Filed: 03/12/18 08:54> Discharge Date and Diagnosis - Problem List Patient Problems: Active and Suspected Problems Acute respiratory failure with hypoxia (Acute) COPD exacerbation (Acute) Date of Admission: 03/08/18 Date of Discharge: 03/10/18 - Primary Discharge Diagnosis Active and Suspected Problems 1. Acute on chronic hypoxic and hypercapnic respiratory failure secondary to acute exacerbation of COPD and acute systolic CHF 2. Acute kidney injury on chronic kidney disease stage III 3. Paroxysmal atrial fibrillation 4. Hypertension 5. Hyperlipidemia 6. Type 2 diabetes mellitus 7. Psoriatic arthritis 8. Macrocytic anemia 9. BPH - Secondary Discharge Diagnosis Chronic Problems COPD (chronic obstructive pulmonary disease) (Chronic) PAF (paroxysmal atrial fibrillation) (Chronic) HTN (hypertension) (Chronic) HLD (hyperlipidemia) (Chronic) Psoriatic arthritis (Chronic) Chronic respiratory failure with hypoxia (Chronic) CKD (chronic kidney disease) stage 3, GFR 30-59 ml/min (Chronic) Anemia (Chronic) PAD (peripheral artery disease) (Chronic) Diabetes mellitus, type II (Chronic) Hospital Course and Treatment Imaging Results: Diagnostic Data Thoracentesis Ultrasound 03/09/18 08:00 IMPRESSION: Ultrasound-guided right thoracentesis. Electronically Signed: Jens Gomez MD at 13:52 EST Tel [phone], Service support , Chest X-Ray 03/10/18 08:27 IMPRESSION: Stable pleural parenchymal changes at the right lung base with stable increased markings in the right upper lobe. Electronically Signed: Jens Gomez MD at 13:38 EST Tel [phone], Service support , Operations: None Procedures: 2-D Echocardiogram, Thoracentesis Summary of Care Provided: The patient is a 77 year old M admitted 03/08/2018 due to dyspnea, hypoxia. 1. Acute on chronic hypoxic and hypercapnic respiratory failure secondary to acute exacerbation of COPD and acute systolic CHF-respiratory panel negative. Sputum culture shows normal respiratory edmundo. Albuterol DuoNeb aerosols. Received IV Solu-Medrol during admission. Discharge on prednisone taper. Lasix discontinued due to worsening renal function. Patient underwent thoracentesis for right pleural effusion 03/09/2018, culture shows no growth. Lab studies shows transudate fluid. Continue supplement oxygen to maintain O2 at or above 90%. Echocardiogram showed an EF of 35-40%, stage I diastolic dysfunction, moderate to severe global hypokinesis of the left ventricle, RVSP estimated to be 48 mmHg. No prior study for comparison. Patient will continue home supplement oxygen to maintain O2 at or above 90%. Follow-up with primary care physician in 1 week. Follow-up with primary master automotive technician in 1-2 weeks. 2. Acute kidney injury on chronic kidney disease stage III-kidney function improved with gentle IV fluids and discontinuing Lasix regimen. Repeat BMP in 1 week. 3. Hyperkalemia-secondary to #2. Resolved. 4. Paroxysmal atrial fibrillation-currently sinus rhythm. Not on oral anticoagulation due to history of GI bleed. 5. Hypertension-continue home felodipine regimen. Hold lisinopril regimen until repeat lab work in 1 week. May resume per primary care physician if kidney function remains stable. 6. Hyperlipidemia-continue statin. 7. Type 2 diabetes mellitus-diet controlled. Hemoglobin A1c 5%. 8. Psoriatic arthritis-continue sulfasalazine. 9. Macrocytic anemia-stable, continue folate supplementation. 10. BPH- continue flomax. General: Alert, Oriented x3, Cooperative, No apparent distress HEENT: Atraumatic, PERRLA, EOMI, Normocephalic Neck: Supple, No JVD, Negative Carotid Bruits Lungs: Clear to auscultation, Diminished Cardiovascular: Regular rate, Regular Rhythm, Normal S1, Normal S2, No murmurs Abdomen: Bowel Sounds Present, Soft, Non Tender, Non-Distended Extremities: No clubbing, No cyanosis, No edema, Capillary Refill Less than 3 Seconds Skin: No rashes, No breakdown Musculoskeletal: No Tenderness to Palpation of Joints or Extremities Neurological: Cranial nerves II-XII grossly intact, Neuro grossly intact Psych/Mental Status: Normal Affect, Appropriate Patient seen and examined prior to discharge. Physical assessment as noted above. This patient was seen by VIJAY Guzman under the supervision of Dr. Garcia. Patient Problems: Active and Suspected Problems Acute respiratory failure with hypoxia (Acute) COPD exacerbation (Acute) - Physical Exam Vital Signs Temp Pulse Resp BP Pulse Ox 98.7 F 99 20 H 151/70 H 96 03/10/18 11:40 03/10/18 11:40 03/10/18 11:40 03/10/18 11:40 03/10/18 11:40 Oxygen Flow Rate (L/min) 6 Oxygen Delivery Method Venturi Mask Weight: 177 lb 0.499 oz Body Mass Index (BMI) 25.4 Intake and Output for Last 24 Hours 03/08/18 03/09/18 03/10/18 23:59 23:59 23:59 Intake Total 240 / 240 1560 / 1560 560 / 560 Output Total 525 / 525 2395 / 2395 900 / 900 Balance -285 / -285 -835 / -835 -340 / -340 Microbiology Past 72 Hours 03/09/18 08:00 Gram Stain - Final Sputum, Expectorated/Coughed 03/09/18 13:00 Gram Stain - Final Fluid - Thoracentesis Fluid 03/08/18 20:58 Respiratory Panel (PCR) - Final Mucosa - Nose Laboratory Tests Past 24 Hrs 03/09/18 03/09/18 03/09/18 13:00 13:00 13:00 WBC RBC Hgb Hct MCV MCH MCHC RDW RDW Differential Plt Count MPV Immature Gran % (Auto) Neut % (Auto) Lymph % (Auto) [place] % (Auto) Eos % (Auto) Baso % (Auto) Absolute Neuts (auto) Absolute Lymphs (auto) Total Counted Sodium Potassium Chloride Carbon Dioxide Anion Gap BUN Creatinine Estim Creat Clear Calc Est GFR (MDRD) Af Amer Est GFR (MDRD) Non-Af BUN/Creatinine Ratio Glucose Calcium Fluid Source THORACENTESIS Fluid Color YELLOW Fluid Appearance SL CLDY Fluid pH Pending Fluid WBC 0.246 Fluid RBC 0.60177 Fluid Tot Cell Count 0.274 Fld Polynuclear WBCs # 0.025 Fld Polynuclear WBCs % 10.2 Fluid Mononuclear WBCs 0.221 Fld Mononuclear WBCs % 89.8 Fluid Neutrophils 6 Fluid Lymphocytes 94 Fl Pathologist Comment Reviewed Fluid Glucose 127 H Fluid Total Protein 3.0 Fluid LDH 112 Fluid Comment 2 SEE COMMENT 03/10/18 03/10/18 06:05 06:05 WBC 7.8 RBC 2.99 L Hgb 9.1 L Hct 30.5 L MCV 102.0 H MCH 30.4 MCHC 29.8 L RDW 13.8 RDW Differential 51.7 H Plt Count 255 MPV 9.3 Immature Gran % (Auto) 0.300 Neut % (Auto) 86.4 H Lymph % (Auto) 6.4 L [place] % (Auto) 6.7 Eos % (Auto) 0.1 Baso % (Auto) 0.1 Absolute Neuts (auto) 6.7 Absolute Lymphs (auto) 0.50 L Total Counted Not Reportable Sodium 137 Potassium 4.7 Chloride 98 Carbon Dioxide 34.0 H Anion Gap 5 BUN 33 H Creatinine 1.73 H Estim Creat Clear Calc 38.09 Est GFR (MDRD) Af Amer 50 L Est GFR (MDRD) Non-Af 41 L BUN/Creatinine Ratio 19.1 Glucose 123 H Calcium 8.6 Fluid Source Fluid Color Fluid Appearance Fluid pH Fluid WBC Fluid RBC Fluid Tot Cell Count Fld Polynuclear WBCs # Fld Polynuclear WBCs % Fluid Mononuclear WBCs Fld Mononuclear WBCs % Fluid Neutrophils Fluid Lymphocytes Fl Pathologist Comment Fluid Glucose Fluid Total Protein Fluid LDH Fluid Comment 2 POC Glucose 03/10/18 03/10/18 03/09/18 11:12 06:50 22:19 POC Glucose 171 H 122 H 141 H 03/09/18 16:45 POC Glucose 158 H Discharge Diet: Low fat/ Low Cholesterol, Carb Control Diet Discharge Activity: Return to Normal Activity Call your doctor if you observe: Shortness of breath, Dizziness, Fainting spells, Chest pain Home Medications: Medications to take at Discharge Albuterol Sulfate [Ventolin Hfa] 2 puff INHALATION PRN PRN 03/08/18 Aspirin [Aspirin, Baby] 81 mg PO DAILY 03/08/18 Atorvastatin Calcium 40 mg PO QHS 03/08/18 Felodipine [Plendil] 10 mg PO DAILY 03/08/18 Fluticasone Propionate 2 spray NASAL DAILY 03/08/18 Guaifenesin 800 mg PO BID 03/08/18 Ipratropium/Albuterol Sulfate [Duoneb] 3 ml INHALATION Q4H 03/08/18 Latanoprost 2 drop EACH EYE DAILY 03/08/18 Lisinopril [Zestril] 40 mg PO DAILY 03/08/18 Sodium Chloride 0.65% [[place] Nasal [place]] 1 - 2 spray NASAL PRN PRN 03/08/18 Sulfasalazine [Azulfidine] 1,000 mg PO BID 03/08/18 Tamsulosin HCl [Flomax] 0.4 mg PO DAILY 03/08/18 Prednisone See Taper PO DAILY #30 tablet 03/10/18 Following Prescrptions Were Given to Patient: Prednisone See Taper PO DAILY #30 tablet Other Amb Orders: Basic Metabolic Profile (BMP) Time Frame: 1 Week, Location: Laboratory Primary Care Physician: Alexis Vaz MD [Primary Care Provider] - Please follow up with your Primary Care Physician in: 1 Week Please Follow Up With: Haider Van MD When: 1-2 Weeks Disposition: Home Minutes spent on discharge:: 35 Patient Condition:: Stable Medical Necessity - Tobacco Use Smoking Status: Former smoker Tobacco Use: Non-smoker Meaningful Use Info Meaningful Use Diagnoses (Choose all that apply): CHF - CHF JAYLEEN/ARB ordered at discharge?: Yes Documented LVEF (%): 35 <Mushtaq Garcia - Last Filed: 03/12/18 09:25> Discharge Date and Diagnosis Date of Discharge: 03/12/18 - Primary Discharge Diagnosis Active and Suspected Problems Acute respiratory failure with hypoxia (Acute) COPD exacerbation (Acute) - Secondary Discharge Diagnosis Chronic Problems COPD (chronic obstructive pulmonary disease) (Chronic) PAF (paroxysmal atrial fibrillation) (Chronic) HTN (hypertension) (Chronic) HLD (hyperlipidemia) (Chronic) Psoriatic arthritis (Chronic) Chronic respiratory failure with hypoxia (Chronic) CKD (chronic kidney disease) stage 3, GFR 30-59 ml/min (Chronic) Anemia (Chronic) PAD (peripheral artery disease) (Chronic) Diabetes mellitus, type II (Chronic) Hospital Course and Treatment Summary of Care Provided: This patient was seen in conjunction with VIJAY Guzman . I have independently interviewed and examined the patient and reviewed pertinent historical, laboratory, and other data. Please refer to VIJAY Guzman note for details of this patient's presentation, findings, and recommendations. I have reviewed VIJAY Guzman note and concur with documented findings. In brief, patient is a 77-year-old male with multiple comorbidities including paroxysmal atrial fibrillation, hypoxic respiratory failure secondary to COPD who presented with shortness of breath and assessment of COPD with acute exacerbation was made. Patient was also found to have moderate right-sided pleural effusion for which an ultrasound-guided thoracocentesis was ordered. Physical Examination: GENERAL: cooperative HEENT: Atraumatic; EYES; Anicteric, Normal Conjunctiva NECK; supple, normal thyroid, RESPIRATORY: Diminished to auscultation bilaterally, CARDIOVASCULAR: Irregular S1-S2 GI: soft, non-tender, normoactive bowel sounds, : No Renal angle tenderness; NEURO: Awake; SKIN: No Rash PSYCH; flat affect Assessment: 1. Acute on chronic hypoxic respiratory failure secondary to combination of COPD and CHF exacerbation 2. COPD with acute exacerbation 3. Acute diastolic congestive heart failure 4. Moderate right-sided pleural effusion 5. Paroxysmal atrial fibrillation 6. Essential hypertension 7. Diabetes mellitus type 2 8. Psoriatic arthritis 9. Chronic kidney disease stage III 10. Microcytic anemia 11. BPH on Flomax 12. DVT prophylaxis SC heparin 13. DAWN superimposed on CKD Hospital Course ; As above - Physical Exam Vital Signs Temp Pulse Resp BP Pulse Ox 98.2 F 90 18 125/69 H 92 03/12/18 09:00 03/12/18 09:00 03/12/18 09:00 03/12/18 09:00 03/12/18 09:00 Oxygen Flow Rate (L/min) 3 Oxygen Delivery Method Nasal Cannula Weight: 80.3 kg Body Mass Index (BMI) 25.4 Intake and Output for Last 24 Hours 03/10/18 03/11/18 03/12/18 23:59 23:59 23:59 Intake Total 1260 / 1260 1979 / 1979 693 / 693 Output Total 1872 / 1872 1505 / 1505 200 / 200 Balance -612 / -612 475 / 475 493 / 493 Microbiology Past 72 Hours 03/09/18 13:00 Gram Stain - Final Fluid - Thoracentesis Fluid Body Fluid Culture - Final No growth aerobically. Anaerobic Culture - Preliminary No growth in 48 hours. 03/09/18 08:00 Gram Stain - Final Sputum, Expectorated/Coughed Respiratory Culture - Final Mixed normal respiratory edmundo. No Haemophilus, Streptococcus pneumoniae, beta-hemolytic Streptococcus or Staphylococcus aureus isolated. 03/08/18 20:58 Respiratory Panel (PCR) - Final Mucosa - Nose Laboratory Tests Past 24 Hrs 03/09/18 03/09/18 03/12/18 13:00 13:00 06:08 WBC 7.3 RBC 2.93 L Hgb 9.0 L Hct 30.6 L MCV 104.4 H MCH 30.7 MCHC 29.4 L RDW 13.4 RDW Differential 49.6 H Plt Count 268 MPV 9.6 Sodium Potassium Chloride Carbon Dioxide Anion Gap BUN Creatinine Estim Creat Clear Calc Est GFR (MDRD) Af Amer Est GFR (MDRD) Non-Af BUN/Creatinine Ratio Glucose Calcium Fluid pH 7.5 Miscellaneous Cytology SEE PATHOLOGY REPORT 03/12/18 06:08 WBC RBC Hgb Hct MCV MCH MCHC RDW RDW Differential Plt Count MPV Sodium 140 Potassium 4.4 Chloride 100 Carbon Dioxide 34.0 H Anion Gap 6 BUN 43 H Creatinine 1.60 H Estim Creat Clear Calc 41.19 Est GFR (MDRD) Af Amer 54 L Est GFR (MDRD) Non-Af 45 L BUN/Creatinine Ratio 26.9 H Glucose 119 H Calcium 7.9 L Fluid pH Miscellaneous Cytology POC Glucose 03/12/18 03/11/18 03/11/18 06:59 21:03 16:36 POC Glucose 120 H 172 H 128 H 03/11/18 11:28 POC Glucose 156 H Code Visit Inpatient E&M: 64305 Disch Hosp
--- NOTE | 2018-03-10 14:23 | PN_ITS ---
<Sasha Rasmussen - Last Filed: 03/10/18 14:23> Patient Problems: Active and Suspected Problems Acute respiratory failure with hypoxia (Acute) COPD exacerbation (Acute) Subjective: Patient seen and examined. States he feels great, wishes to go home. Denies further significant shortness of breath. - Physical Exam General: Alert, Oriented x3, Cooperative, No apparent distress HEENT: Atraumatic, PERRLA, EOMI, Normocephalic Neck: Supple, No JVD, Negative Carotid Bruits Lungs: Clear to auscultation, Diminished Cardiovascular: Regular rate, Regular Rhythm, Normal S1, Normal S2, No murmurs Abdomen: Bowel Sounds Present, Soft, Non Tender, Non-Distended Extremities: No clubbing, No cyanosis, No edema, Capillary Refill Less than 3 Seconds Skin: No rashes, No breakdown Musculoskeletal: No Tenderness to Palpation of Joints or Extremities Neurological: Cranial nerves II-XII grossly intact, Neuro grossly intact Psych/Mental Status: Normal Affect, Appropriate Vital Signs Temp Pulse Resp BP Pulse Ox 98.7 F 99 20 H 151/70 H 96 03/10/18 11:40 03/10/18 11:40 03/10/18 11:40 03/10/18 11:40 03/10/18 11:40 Oxygen Flow Rate (L/min) 6 Oxygen Delivery Method Venturi Mask Weight: 177 lb 0.499 oz Body Mass Index (BMI) 25.4 Intake and Output for Last 24 Hours 03/08/18 03/09/18 03/10/18 23:59 23:59 23:59 Intake Total 240 / 240 1560 / 1560 560 / 560 Output Total 525 / 525 2395 / 2395 900 / 900 Balance -285 / -285 -835 / -835 -340 / -340 Microbiology Past 72 Hours 03/09/18 13:00 Gram Stain - Final Fluid - Thoracentesis Fluid Body Fluid Culture - Preliminary No growth-Final to follow 03/09/18 08:00 Gram Stain - Final Sputum, Expectorated/Coughed Respiratory Culture - Preliminary Appears to be normal respiratory edmundo. Further studies to follow. 03/08/18 20:58 Respiratory Panel (PCR) - Final Mucosa - Nose Laboratory Tests Past 24 Hrs 03/09/18 03/09/18 03/10/18 13:00 13:00 06:05 WBC 7.8 RBC 2.99 L Hgb 9.1 L Hct 30.5 L MCV 102.0 H MCH 30.4 MCHC 29.8 L RDW 13.8 RDW Differential 51.7 H Plt Count 255 MPV 9.3 Immature Gran % (Auto) 0.300 Neut % (Auto) 86.4 H Lymph % (Auto) 6.4 L [place] % (Auto) 6.7 Eos % (Auto) 0.1 Baso % (Auto) 0.1 Absolute Neuts (auto) 6.7 Absolute Lymphs (auto) 0.50 L Total Counted Not Reportable Sodium Potassium Chloride Carbon Dioxide Anion Gap BUN Creatinine Estim Creat Clear Calc Est GFR (MDRD) Af Amer Est GFR (MDRD) Non-Af BUN/Creatinine Ratio Glucose Calcium Fluid Neutrophils 6 Fluid Lymphocytes 94 Fl Pathologist Comment Reviewed Fluid Glucose 127 H Fluid Total Protein 3.0 Fluid LDH 112 03/10/18 06:05 WBC RBC Hgb Hct MCV MCH MCHC RDW RDW Differential Plt Count MPV Immature Gran % (Auto) Neut % (Auto) Lymph % (Auto) [place] % (Auto) Eos % (Auto) Baso % (Auto) Absolute Neuts (auto) Absolute Lymphs (auto) Total Counted Sodium 137 Potassium 4.7 Chloride 98 Carbon Dioxide 34.0 H Anion Gap 5 BUN 33 H Creatinine 1.73 H Estim Creat Clear Calc 38.09 Est GFR (MDRD) Af Amer 50 L Est GFR (MDRD) Non-Af 41 L BUN/Creatinine Ratio 19.1 Glucose 123 H Calcium 8.6 Fluid Neutrophils Fluid Lymphocytes Fl Pathologist Comment Fluid Glucose Fluid Total Protein Fluid LDH POC Glucose 03/10/18 03/10/18 03/09/18 11:12 06:50 22:19 POC Glucose 171 H 122 H 141 H 03/09/18 16:45 POC Glucose 158 H Medical Necessity - Tobacco Use Smoking Status: Former smoker Tobacco Use: Non-smoker Assessment/Plan All Active Problems Acute respiratory failure with hypoxia (Acute) COPD exacerbation (Acute) 1. Acute on chronic hypoxic and hypercapnic respiratory failure secondary to acute exacerbation of COPD and acute systolic CHF-respiratory panel negative. Sputum culture shows normal respiratory edmundo. Albuterol DuoNeb aerosols. IV Solu-Medrol. Transition to oral Lasix from IV. Patient underwent thoracentesis for right pleural effusion 03/09/2018, culture shows no growth. Lab studies shows transudate fluid. Continue supplement oxygen to maintain O2 at or above 90%. Echocardiogram showed an EF of 35-40%, stage I diastolic dysfunction, moderate to severe global hypokinesis of the left ventricle, RVSP estimated to be 48 mmHg. No prior study for comparison. Anticipate discharge tomorrow if patient remains stable. 2. Acute kidney injury on chronic kidney disease stage III-switch to oral Lasix. Trend BMP. 3. Paroxysmal atrial fibrillation-currently sinus rhythm, sinus tachycardia with ambulation. Not on oral anticoagulation due to history of GI bleed. 4. Hypertension-mildly elevated, continue home lisinopril regimen. 5. Hyperlipidemia-continue statin. 6. Type 2 diabetes mellitus-diet controlled. Hemoglobin A1c 5%. 7. Psoriatic arthritis-continue sulfasalazine. 8. Macrocytic anemia-stable, continue folate supplementation. 9. BPH- continue flomax. DVT prophylaxis-heparin subcu This patient was seen by VIJAY Guzman under the supervision of Dr. Garcia. <Mushtaq Garcia - Last Filed: 03/10/18 14:53> - Physical Exam Vital Signs Temp Pulse Resp BP Pulse Ox 98.7 F 99 20 H 151/70 H 92 03/10/18 11:40 03/10/18 11:40 03/10/18 11:40 03/10/18 11:40 03/10/18 14:31 Oxygen Flow Rate (L/min) 5 Oxygen Delivery Method Nasal Cannula Weight: 80.3 kg Body Mass Index (BMI) 25.4 Intake and Output for Last 24 Hours 03/08/18 03/09/18 03/10/18 23:59 23:59 23:59 Intake Total 240 / 240 1560 / 1560 560 / 560 Output Total 525 / 525 2395 / 2395 900 / 900 Balance -285 / -285 -835 / -835 -340 / -340 Microbiology Past 72 Hours 03/09/18 13:00 Gram Stain - Final Fluid - Thoracentesis Fluid Body Fluid Culture - Preliminary No growth-Final to follow 03/09/18 08:00 Gram Stain - Final Sputum, Expectorated/Coughed Respiratory Culture - Preliminary Appears to be normal respiratory edmundo. Further studies to follow. 03/08/18 20:58 Respiratory Panel (PCR) - Final Mucosa - Nose Laboratory Tests Past 24 Hrs 03/09/18 03/10/18 03/10/18 13:00 06:05 06:05 WBC 7.8 RBC 2.99 L Hgb 9.1 L Hct 30.5 L MCV 102.0 H MCH 30.4 MCHC 29.8 L RDW 13.8 RDW Differential 51.7 H Plt Count 255 MPV 9.3 Immature Gran % (Auto) 0.300 Neut % (Auto) 86.4 H Lymph % (Auto) 6.4 L [place] % (Auto) 6.7 Eos % (Auto) 0.1 Baso % (Auto) 0.1 Absolute Neuts (auto) 6.7 Absolute Lymphs (auto) 0.50 L Total Counted Not Reportable Sodium 137 Potassium 4.7 Chloride 98 Carbon Dioxide 34.0 H Anion Gap 5 BUN 33 H Creatinine 1.73 H Estim Creat Clear Calc 38.09 Est GFR (MDRD) Af Amer 50 L Est GFR (MDRD) Non-Af 41 L BUN/Creatinine Ratio 19.1 Glucose 123 H Calcium 8.6 Fluid Neutrophils 6 Fluid Lymphocytes 94 Fl Pathologist Comment Reviewed POC Glucose 03/10/18 03/10/18 03/09/18 11:12 06:50 22:19 POC Glucose 171 H 122 H 141 H 03/09/18 16:45 POC Glucose 158 H Assessment/Plan This patient was seen in conjunction with VIJAY Guzman . I have independently interviewed and examined the patient and reviewed pertinent historical, laboratory, and other data. Please refer to VIJAY Guzman note for details of this patient's presentation, findings, and recommendations. I have reviewed VIJAY Guzman note and concur with documented findings. In brief, patient is a 77-year-old male with multiple comorbidities including paroxysmal atrial fibrillation, hypoxic respiratory failure secondary to COPD who presented with shortness of breath and assessment of COPD with acute exacerbation was made. Patient was also found to have moderate right-sided pleu ral effusion for which an ultrasound-guided thoracocentesis was ordered. 03/10/2018: Patient seen still remains relatively dyspneic at rest requiring oxygen Via Ventimask. Plan to discharge patient home placed on hold Physical Examination: GENERAL: cooperative jittery HEENT: Atraumatic; EYES; Anicteric, Normal Conjunctiva NECK; supple, normal thyroid, RESPIRATORY: Diminished to auscultation bilaterally, CARDIOVASCULAR: Irregular S1-S2 GI: soft, non-tender, normoactive bowel sounds, : No Renal angle tenderness; NEURO: Awake; SKIN: No Rash PSYCH; flat affect Assessment: 1. Acute on chronic hypoxic respiratory failure secondary to combination of COPD and CHF exacerbation 2. COPD with acute exacerbation 3. Acute diastolic congestive heart failure 4. Moderate right-sided pleural effusion 5. Paroxysmal atrial fibrillation 6. Essential hypertension 7. Diabetes mellitus type 2 8. Psoriatic arthritis 9. Chronic kidney disease stage III 10. Microcytic anemia 11. BPH on Flomax 12. DVT prophylaxis SC heparin Recommendations: 1. I have discussed the results of my overview and impressions with the patient 2. Options for management were reviewed Code Visit Inpatient E&M: [id number] Subs Hosp L2
--- NOTE | 2018-03-10 15:01 | NURSING ---
Student nurse charting reviewed and appropriate.
[2018-03-10 16:31] LABS: Bedside Glucose 156 mg/dL (70-110)
[2018-03-10] MEDS: hydrALAZINE 20 MG/ML Vial 10 MG IV (17:50)
[2018-03-10] MEDS: Atorvastatin Calcium 40 MG Tablet PO (21:52)
[2018-03-10 22:21] LABS: Bedside Glucose 136 mg/dL (70-110)
[2018-03-11] VITALS (14 sets, daily range): BP systolic 139–146; BP diastolic 60–74; PULSE 73–94; RESP 16–20; TEMP 36.6–36.9; O2SAT 93–97
[2018-03-11 05:43] LABS: Anion Gap 6 (5-15); BUN 43 mg/dL (7-18); BUN/Creat Ratio 21.4 RATIO (10-20); Calcium,Total 8.4 mg/dL (8.5-10.1); Chloride 98 mmol/L (98-107); Creatinine, Serum 2.01 mg/dL (0.70-1.30); EST Glomerular Filtration Rate 35 mL/min (>60); Est Glom Filt Rate - Afr Amer 42 mL/min (>60); Estimated Creatinine Clearance 32.79 ml/min; Glucose 132 mg/dL (74-106); Potassium 5.4 mmol/L (3.5-5.1); Sodium Level 139 mmol/L (136-145)
[2018-03-11 05:47] LABS: Hematocrit 32.3 % (40-54); Hemoglobin 9.7 g/dl (13.0-16.5); Mean Corpuscular Hgb 31.3 pg (27.0-32.0); Mean Corpuscular Volume 104.2 fL (80-94); Mean Platelet Vol. 9.6 fl (6.2-12.0); Platelet Count 289 K/mm3 (150-450); RBC Distribution Width CV 13.4 % (11.6-14.6); RBC Distribution Width SD 48.8 fl (35.1-43.9); White Blood Count 7.1 K/mm3 (4.4-11.0)
[2018-03-11 05:53] LABS: Scan Indicated on CBC? Y/N NO
[2018-03-11] MEDS: Sodium Polystyrene Sulfonate 15 GM/60 ML UDC PO (07:02)
[2018-03-11 07:11] LABS: Bedside Glucose 132 mg/dL (70-110)
[2018-03-11] MEDS: Ipratropium/Albuterol Sulfate 3 ML AMPUL.NEB INHALATION ×5 (07:23→22:48)
[2018-03-11] MEDS: sulfaSALAzine 500 MG Tablet 1000 MG PO ×2 (09:14→16:37)
[2018-03-11] MEDS: Aspirin 81 MG TAB.CHEW PO (09:14)
[2018-03-11] MEDS: Heparin Injection (Vial) 5,000 UNIT/ML VIAL 5000 UNIT SC ×2 (09:14→21:04)
[2018-03-11] MEDS: Fluticasone 0.05% 1 SPRAY NASAL.SRY 2 SPRAY NASAL (09:14)
[2018-03-11] MEDS: Tamsulosin HCl 0.4 MG Capsule PO (09:14)
[2018-03-11] MEDS: guaiFENesin 1,200 MG Tablet 1200 MG PO ×2 (09:15→21:05)
[2018-03-11] MEDS: amLODIPine 10 MG Tablet PO (09:15)
[2018-03-11] MEDS: Furosemide 40 MG Tablet PO (09:18)
[2018-03-11] MEDS: Insulin Lispro 100 UNIT/ML INSULN.PEN SC ×2 (11:31→21:04)
[2018-03-11 11:41] LABS: Bedside Glucose 156 mg/dL (70-110)
--- NOTE | 2018-03-11 11:56 | PCM.PROGNOTE ---
<Sasha Rasmussen - Last Filed: 03/11/18 12:03> Patient Problems: Active and Suspected Problems Acute respiratory failure with hypoxia (Acute) COPD exacerbation (Acute) Subjective: Patient seen and examined. Denies further significant shortness of breath. Wishes to go home. Informed patient that his kidney function has worsened today. We will keep overnight and repeat labs in a.m. Patient agreeable. - Physical Exam General: Alert, Oriented x3, Cooperative, No apparent distress HEENT: Atraumatic, PERRLA, EOMI, Normocephalic Neck: Supple, No JVD, Negative Carotid Bruits Lungs: Clear to auscultation, Diminished Cardiovascular: Regular rate, Regular Rhythm, Normal S1, Normal S2, No murmurs Abdomen: Bowel Sounds Present, Soft, Non Tender, Non-Distended Extremities: No clubbing, No cyanosis, No edema, Capillary Refill Less than 3 Seconds Skin: No rashes, No breakdown Musculoskeletal: No Tenderness to Palpation of Joints or Extremities Neurological: Cranial nerves II-XII grossly intact, Neuro grossly intact Psych/Mental Status: Normal Affect, Appropriate Vital Signs Temp Pulse Resp BP Pulse Ox 97.9 F 91 17 146/60 H 96 03/11/18 09:06 03/11/18 11:17 03/11/18 10:09 03/11/18 09:06 03/11/18 09:06 Oxygen Flow Rate (L/min) 3 Oxygen Delivery Method Nasal Cannula Weight: 177 lb 0.499 oz Body Mass Index (BMI) 25.4 Intake and Output for Last 24 Hours 03/09/18 03/10/18 03/11/18 23:59 23:59 23:59 Intake Total 1560 / 1560 1260 / 1260 660 / 660 Output Total 2395 / 2395 1872 / 1872 705 / 705 Balance -835 / -835 -612 / -612 -45 / -45 Microbiology Past 72 Hours 03/09/18 08:00 Gram Stain - Final Sputum, Expectorated/Coughed Respiratory Culture - Final Mixed normal respiratory edmundo. No Haemophilus, Streptococcus pneumoniae, beta-hemolytic Streptococcus or Staphylococcus aureus isolated. 03/09/18 13:00 Gram Stain - Final Fluid - Thoracentesis Fluid Body Fluid Culture - Preliminary No growth-Final to follow Anaerobic Culture - Preliminary No growth in 48 hours. 03/08/18 20:58 Respiratory Panel (PCR) - Final Mucosa - Nose Laboratory Tests Past 24 Hrs 03/11/18 03/11/18 05:00 05:00 WBC 7.1 RBC 3.10 L Hgb 9.7 L Hct 32.3 L MCV 104.2 H MCH 31.3 MCHC 30.0 L RDW 13.4 RDW Differential 48.8 H Plt Count 289 MPV 9.6 Sodium 139 Potassium 5.4 H Chloride 98 Carbon Dioxide 35.0 H Anion Gap 6 BUN 43 H Creatinine 2.01 H Estim Creat Clear Calc 32.79 Est GFR (MDRD) Af Amer 42 L Est GFR (MDRD) Non-Af 35 L BUN/Creatinine Ratio 21.4 H Glucose 132 H Calcium 8.4 L POC Glucose 03/11/18 03/11/18 03/10/18 11:28 07:08 21:50 POC Glucose 156 H 132 H 136 H 03/10/18 16:07 POC Glucose 156 H Medical Necessity - Tobacco Use Smoking Status: Former smoker Tobacco Use: Non-smoker Assessment/Plan All Active Problems Acute respiratory failure with hypoxia (Acute) COPD exacerbation (Acute) 1. Acute on chronic hypoxic and hypercapnic respiratory failure secondary to acute exacerbation of COPD and acute systolic CHF-respiratory panel negative. Sputum culture shows normal respiratory edmundo. Albuterol DuoNeb aerosols. IV Solu-Medrol. Lasix discontinued due to worsening renal function. Patient underwent thoracentesis for right pleural effusion 03/09/2018, culture shows no growth. Lab studies shows transudate fluid. Continue supplement oxygen to maintain O2 at or above 90%. Echocardiogram showed an EF of 35-40%, stage I diastolic dysfunction, moderate to severe global hypokinesis of the left ventricle, RVSP estimated to be 48 mmHg. No prior study for comparison. Anticipate discharge tomorrow if kidney function improves. 2. Acute kidney injury on chronic kidney disease stage III-kidney function worse today. Discontinue oral Lasix. Gentle IV fluids. Repeat BMP in a.m. 3. Hyperkalemia-secondary to #2. Trend BMP. 4. Paroxysmal atrial fibrillation-currently sinus rhythm, sinus tachycardia with ambulation. Not on oral anticoagulation due to history of GI bleed. 5. Hypertension-mildly elevated, home lisinopril regimen on hold due to acute kidney injury. Continue amlodipine. 6. Hyperlipidemia-continue statin. 7. Type 2 diabetes mellitus-diet controlled. Hemoglobin A1c 5%. 8. Psoriatic arthritis-continue sulfasalazine. 9. Macrocytic anemia-stable, continue folate supplementation. 10. BPH- continue flomax. DVT prophylaxis-heparin subcu This patient was seen by Sasha Rasmussen NP-C under the supervision of Dr. Garcia. <Mushtaq Garcia - Last Filed: 03/11/18 12:07> - Physical Exam Vital Signs Temp Pulse Resp BP Pulse Ox 97.9 F 91 17 146/60 H 96 03/11/18 09:06 03/11/18 11:17 03/11/18 10:09 03/11/18 09:06 03/11/18 09:06 Oxygen Flow Rate (L/min) 3 Oxygen Delivery Method Nasal Cannula Weight: 80.3 kg Body Mass Index (BMI) 25.4 Intake and Output for Last 24 Hours 03/09/18 03/10/18 03/11/18 23:59 23:59 23:59 Intake Total 1560 / 1560 1260 / 1260 660 / 660 Output Total 2395 / 2395 1872 / 1872 705 / 705 Balance -835 / -835 -612 / -612 -45 / -45 Microbiology Past 72 Hours 03/09/18 08:00 Gram Stain - Final Sputum, Expectorated/Coughed Respiratory Culture - Final Mixed normal respiratory edmundo. No Haemophilus, Streptococcus pneumoniae, beta-hemolytic Streptococcus or Staphylococcus aureus isolated. 03/09/18 13:00 Gram Stain - Final Fluid - Thoracentesis Fluid Body Fluid Culture - Preliminary No growth-Final to follow Anaerobic Culture - Preliminary No growth in 48 hours. 03/08/18 20:58 Respiratory Panel (PCR) - Final Mucosa - Nose Laboratory Tests Past 24 Hrs 03/11/18 03/11/18 05:00 05:00 WBC 7.1 RBC 3.10 L Hgb 9.7 L Hct 32.3 L MCV 104.2 H MCH 31.3 MCHC 30.0 L RDW 13.4 RDW Differential 48.8 H Plt Count 289 MPV 9.6 Sodium 139 Potassium 5.4 H Chloride 98 Carbon Dioxide 35.0 H Anion Gap 6 BUN 43 H Creatinine 2.01 H Estim Creat Clear Calc 32.79 Est GFR (MDRD) Af Amer 42 L Est GFR (MDRD) Non-Af 35 L BUN/Creatinine Ratio 21.4 H Glucose 132 H Calcium 8.4 L POC Glucose 03/11/18 03/11/18 03/10/18 11:28 07:08 21:50 POC Glucose 156 H 132 H 136 H 03/10/18 16:07 POC Glucose 156 H Assessment/Plan This patient was seen in conjunction with VIJAY Guzman . I have independently interviewed and examined the patient and reviewed pertinent historical, laboratory, and other data. Please refer to VIJAY Guzman note for details of this patient's presentation, findings, and recommendations. I have reviewed VIJAY Guzman note and concur with documented findings. In brief, patient is a 77-year-old male with multiple comorbidities including paroxysmal atrial fibrillation, hypoxic respiratory failure secondary to COPD who presented with shortness of breath and assessment of COPD with acute exacerbation was made. Patient was also found to have moderate right-sided pleural effusion for which an ultrasound-guided thoracocentesis was ordered. 03/10/2018: Patient seen still remains relatively dyspneic at rest requiring oxygen Via Ventimask. Plan to discharge patient home placed on hold 03/11/2018: Plan to discharge patient home placed on hold with worsening of his kidney function . Cr up to 2.0; K 5.4 Physical Examination: GENERAL: cooperative jittery HEENT: Atraumatic; EYES; Anicteric, Normal Conjunctiva NECK; supple, normal thyroid, RESPIRATORY: Diminished to auscultation bilaterally, CARDIOVASCULAR: Irregular S1-S2 GI: soft, non-tender, normoactive bowel sounds, : No Renal angle tenderness; NEURO: Awake; SKIN: No Rash PSYCH; flat affect Assessment: 1. Acute on chronic hypoxic respiratory failure secondary to combination of COPD and CHF exacerbation 2. COPD with acute exacerbation 3. Acute diastolic congestive heart failure 4. Moderate right-sided pleural effusion 5. Paroxysmal atrial fibrillation 6. Essential hypertension 7. Diabetes mellitus type 2 8. Psoriatic arthritis 9. Chronic kidney disease stage III 10. Microcytic anemia 11. BPH on Flomax 12. DVT prophylaxis SC heparin 13. DAWN superimposed on CKD Recommendations: 1. I have discussed the results of my overview and impressions with the patient 2. Options for management were reviewed Code Visit Inpatient E&M: 93250 Subs Hosp L2
[2018-03-11] MEDS: 0.9% NaCl Peripheral Flush Adult/Peds IV (13:32)
[2018-03-11] MEDS: 0.9% Normal Saline 1,000 ML 100 ML IV ×2 (13:32→23:53)
[2018-03-11 13:40] LABS: Cytology, Body Fluid / CSF SEE PATHOLOGY REPORT
[2018-03-11 14:14] LABS: pH, Body Fluid 11254 7.5 (Not Estab.)
[2018-03-11 16:46] LABS: Bedside Glucose 128 mg/dL (70-110)
[2018-03-11] MEDS: Atorvastatin Calcium 40 MG Tablet PO (21:05)
[2018-03-11 22:21] LABS: Bedside Glucose 172 mg/dL (70-110)
[2018-03-12] MEDS: Ipratropium/Albuterol Sulfate 3 ML AMPUL.NEB INHALATION ×2 (02:57→06:57)
[2018-03-12 03:00] VITALS: BP 138/60; PULSE 83; PULSE 84; RESP 18; TEMP 36.7; O2SAT 92
[2018-03-12 03:01] VITALS: PULSE 80; RESP 18
[2018-03-12 06:37] VITALS: PULSE 85; RESP 20; O2SAT 90
[2018-03-12 06:53] LABS: Hematocrit 30.6 % (40-54); Mean Corp Hgb Conc 29.4 g/gl (32-36); Mean Corpuscular Hgb 30.7 pg (27.0-32.0); Mean Corpuscular Volume 104.4 fL (80-94); Mean Platelet Vol. 9.6 fl (6.2-12.0); Platelet Count 268 K/mm3 (150-450); RBC Distribution Width CV 13.4 % (11.6-14.6); RBC Distribution Width SD 49.6 fl (35.1-43.9); Red Blood Count 2.93 M/mm3 (4.6-6.2); White Blood Count 7.3 K/mm3 (4.4-11.0)
[2018-03-12 06:57] LABS: Scan Indicated on CBC? Y/N NO
[2018-03-12 07:05] LABS: Bedside Glucose 120 mg/dL (70-110)
[2018-03-12 07:09] VITALS: PULSE 76
[2018-03-12 07:18] LABS: Anion Gap 6 (5-15); BUN 43 mg/dL (7-18); BUN/Creat Ratio 26.9 RATIO (10-20); Calcium,Total 7.9 mg/dL (8.5-10.1); Chloride 100 mmol/L (98-107); EST Glomerular Filtration Rate 45 mL/min (>60); Est Glom Filt Rate - Afr Amer 54 mL/min (>60); Estimated Creatinine Clearance 41.19 ml/min; Glucose 119 mg/dL (74-106); Potassium 4.4 mmol/L (3.5-5.1); Sodium Level 140 mmol/L (136-145)
[2018-03-12] MEDS: sulfaSALAzine 500 MG Tablet 1000 MG PO (07:52)
[2018-03-12] MEDS: Tamsulosin HCl 0.4 MG Capsule PO (07:52)
[2018-03-12] MEDS: Aspirin 81 MG TAB.CHEW PO (07:52)
--- NOTE | 2018-03-12 08:32 | PCM.DC ---
- Discharge Diagnoses Current Active Problems: Current Active and Chronic Problems COPD (chronic obstructive pulmonary disease) (Chronic) PAF (paroxysmal atrial fibrillation) (Chronic) HTN (hypertension) (Chronic) HLD (hyperlipidemia) (Chronic) Psoriatic arthritis (Chronic) Chronic respiratory failure with hypoxia (Chronic) CKD (chronic kidney disease) stage 3, GFR 30-59 ml/min (Chronic) Anemia (Chronic) PAD (peripheral artery disease) (Chronic) Diabetes mellitus, type II (Chronic) Acute respiratory failure with hypoxia (Acute) COPD exacerbation (Acute) You will use the following diet at home:: Cardiac Discharge Activity: Return to Normal Activity Call your doctor if you observe: Shortness of breath, Dizziness, Fainting spells, Chest pain Additional Instructions: Hold home lisinopril until repeat labwork and follow up with primary care physician. If kidney function remains stable, recommend continuing lisinopril regimen. Allergies/Adverse Reactions: Allergies No Known Allergies Allergy (Verified 03/08/18 14:02) Medications to take at Discharge RX: Albuterol Sulfate [Ventolin Hfa] 2 puff INHALATION PRN PRN 03/08/18 RX: Aspirin [Aspirin, Baby] 81 mg PO DAILY 03/08/18 RX: Atorvastatin Calcium 40 mg PO QHS 03/08/18 RX: Felodipine [Plendil] 10 mg PO DAILY 03/08/18 RX: Fluticasone Propionate 2 spray NASAL DAILY 03/08/18 RX: Guaifenesin 800 mg PO BID 03/08/18 RX: Ipratropium/Albuterol Sulfate [Duoneb] 3 ml INHALATION Q4H 03/08/18 RX: Latanoprost 2 drop EACH EYE DAILY 03/08/18 RX: Lisinopril [Zestril] 40 mg PO DAILY 03/08/18 RX: Sodium Chloride 0.65% [[place] Nasal [place]] 1 - 2 spray NASAL PRN PRN 03/08/18 RX: Sulfasalazine [Azulfidine] 1,000 mg PO BID 03/08/18 RX: Tamsulosin HCl [Flomax] 0.4 mg PO DAILY 03/08/18 RX: Prednisone See Taper PO DAILY #30 tablet 03/10/18 RX: Amlodipine [Norvasc] 10 mg PO DAILY #30 tablet 03/12/18 The following prescriptions were given: RX: Amlodipine [Norvasc] 10 mg PO DAILY #30 tablet RX: Prednisone See Taper PO DAILY #30 tablet Orders to be completed after discharge: Basic Metabolic Profile (BMP) Time Frame: 1 Week, Location: Laboratory Primary Care Physician: Alexis Vaz MD [Primary Care Provider] - Please follow up with your Primary Care Physician in: 1 Week Test Results: Test results from this visit will be discussed in further detail at your follow-up appointment, if applicable. Please Follow Up With: Haider Van MD When: 1-2 Weeks Proposed Discharge Date: 03/10/18
--- NOTE | 2018-03-12 08:36 | DCINST_ITS ---
- Discharge Diagnoses Current Active Problems: Current Active and Chronic Problems COPD (chronic obstructive pulmonary disease) (Chronic) PAF (paroxysmal atrial fibrillation) (Chronic) HTN (hypertension) (Chronic) HLD (hyperlipidemia) (Chronic) Psoriatic arthritis (Chronic) Chronic respiratory failure with hypoxia (Chronic) CKD (chronic kidney disease) stage 3, GFR 30-59 ml/min (Chronic) Anemia (Chronic) PAD (peripheral artery disease) (Chronic) Diabetes mellitus, type II (Chronic) Acute respiratory failure with hypoxia (Acute) COPD exacerbation (Acute) You will use the following diet at home:: Cardiac Discharge Activity: Return to Normal Activity Call your doctor if you observe: Shortness of breath, Dizziness, Fainting spells, Chest pain Additional Instructions: Hold home lisinopril until repeat labwork and follow up with primary care physician. If kidney function remains stable, recommend continuing lisinopril regimen. Allergies/Adverse Reactions: Allergies No Known Allergies Allergy (Verified 03/08/18 14:02) Medications to take at Discharge RX: Albuterol Sulfate [Ventolin Hfa] 2 puff INHALATION PRN PRN 03/08/18 RX: Aspirin [Aspirin, Baby] 81 mg PO DAILY 03/08/18 RX: Atorvastatin Calcium 40 mg PO QHS 03/08/18 RX: Felodipine [Plendil] 10 mg PO DAILY 03/08/18 RX: Fluticasone Propionate 2 spray NASAL DAILY 03/08/18 RX: Guaifenesin 800 mg PO BID 03/08/18 RX: Ipratropium/Albuterol Sulfate [Duoneb] 3 ml INHALATION Q4H 03/08/18 RX: Latanoprost 2 drop EACH EYE DAILY 03/08/18 RX: Lisinopril [Zestril] 40 mg PO DAILY 03/08/18 RX: Sodium Chloride 0.65% [[place] Nasal [place]] 1 - 2 spray NASAL PRN PRN 03/08/18 RX: Sulfasalazine [Azulfidine] 1,000 mg PO BID 03/08/18 RX: Tamsulosin HCl [Flomax] 0.4 mg PO DAILY 03/08/18 RX: Prednisone See Taper PO DAILY #30 tablet 03/10/18 RX: Amlodipine [Norvasc] 10 mg PO DAILY #30 tablet 03/12/18 The following prescriptions were given: RX: Amlodipine [Norvasc] 10 mg PO DAILY #30 tablet RX: Prednisone See Taper PO DAILY #30 tablet Orders to be completed after discharge: Basic Metabolic Profile (BMP) Time Frame: 1 Week, Location: Laboratory Primary Care Physician: Alexis Vaz MD [Primary Care Provider] - Please follow up with your Primary Care Physician in: 1 Week Test Results: Test results from this visit will be discussed in further detail at your follow- up appointment, if applicable. Please Follow Up With: Haider Van MD When: 1-2 Weeks Proposed Discharge Date: 03/10/18
[2018-03-12 09:00] VITALS: BP 125/69; PULSE 90; RESP 18; TEMP 36.8; O2SAT 92
[2018-03-12] MEDS: Fluticasone 0.05% 1 SPRAY NASAL.SRY 2 SPRAY NASAL (09:03)
[2018-03-12] MEDS: amLODIPine 10 MG Tablet PO (09:03)
[2018-03-12] MEDS: guaiFENesin 1,200 MG Tablet 1200 MG PO (09:03)
[2018-03-12] MEDS: Latanoprost 0.005% 1 Bottle 2 DRP EACH EYE (09:03)
== END 2018-03-12 10:39 | disposition home or self-care (01) | DRG 291 ==
LOC: ED 18:17 → MS3 18:39 → PCU 18:41
PROVIDERS: Nurse Practitioner Family; Physician Assistant; Admitting Provider Family Medicine; Emergency Provider Emergency Medicine; Family Provider Internal Medicine; PCP Internal Medicine; Referring Provider Family Medicine; Visit Provider Internal Medicine
DX: I13.0 Hypertensive heart and chronic kidney disease with heart failure and stage 1 through stage 4 chronic kidney disease, or unspecified chronic kidney disease (principal); J96.22 Acute and chronic respiratory failure with hypercapnia; J96.21 Acute and chronic respiratory failure with hypoxia; I50.21 Acute systolic (congestive) heart failure; J44.1 Chronic obstructive pulmonary disease with (acute) exacerbation; N17.9 Acute kidney failure, unspecified; J90 Pleural effusion, not elsewhere classified; I48.0 Paroxysmal atrial fibrillation; E11.22 Type 2 diabetes mellitus with diabetic chronic kidney disease; N18.3 Chronic kidney disease, stage 3 (moderate); L40.50 Arthropathic psoriasis, unspecified; N40.0 Benign prostatic hyperplasia without lower urinary tract symptoms; D53.9 Nutritional anemia, unspecified; E78.5 Hyperlipidemia, unspecified; I73.9 Peripheral vascular disease, unspecified; E87.5 Hyperkalemia; Z99.81 Dependence on supplemental oxygen; Z87.891 Personal history of nicotine dependence
CPT/HCPCS: 32555; 36415; 36600; 71046; 80048; 82803; 82945; 82962; 83036; 83615; 83735; 83880; 83986; 84156; 84157; 84484; 85025; 85027; 85610; 85730; 87070; 87075; 87205; 87633; 88108; 88305; 88313; 88341; 88342; 89050; 93005; 93306; 94002; 94640; 94760; 94762; 97162; 97165; 97530; 97802; 99251; 99283; J7030; Q9957; A4216; C8929; G0463; J1940